=== PATIENT | female | born 1940 | race Caucasian/White ===

== ENCOUNTER 2018-04-24 08:43 | Observation (INO) | payer OTHER ==
--- NOTE | 2018-04-24 10:30 | EKG ---
Test Date: 2018-04-24 Test Time: 08:50:35 Aquatics Coordinator: ABENA MEASUREMENT RESULTS: Intervals: Rate: 108 NJ: QRSD: 140 QT: 368 QTc: 493 [place]: P: NJ: QRS: 255 T: 38 INTERPRETIVE STATEMENTS: Atrial fibrillation with rapid ventricular response Right bundle branch block Abnormal ECG No previous ECG available for comparison Electronically Signed On 04-24-18 10:29:11 BLOG WRITER by Michael Henley
[2018-04-24 11:08] LABS: Absolute Lymphocytes (CBC) 0.8 K/uL (0.7-4.9); Absolute Monocytes 0.5 K/uL (0.1-1.3); Absolute Neutrophil 5.7 K/uL (1.8-8.0); Basophils % 0.3 % (0-1.3); Eosinophils % 0.5 % (0-4.4); Hematocrit 20.5 % (36.0-45.0); Lymphocytes % 11.4 % (15.3-44.8); MPV 7.7 fL (7.6-11.3); Monocytes % 7.4 % (3.3-12.3); RBC Red Blood Cell Count 2.43 M/uL (3.86-4.86)
[2018-04-24 11:17] LABS: Potassium 4.8 mmol/L (3.5-5.1)
--- NOTE | 2018-04-24 11:34 | EDPHYS ---
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 08:53 Sent from jail for anemia, has had 5 blood transfusions before, denies rn bleeding, has "never found out why anemic", + CHF and COPD, + increased dyspnea and weakness over last few days. . Onset: The symptoms/episode began/occurred at an unknown time. Severity of symptoms: At their worst the symptoms were mild in the emergency department the symptoms are unchanged. The patient has experienced similar episodes in the past. The patient has not recently seen a physician. Historical: - Allergies: 08:57 Amiodarone; ph 08:57 Fentanyl; ph 08:57 lorazepam; ph 08:57 Metoclopramide; ph 08:57 Morphine; ph 08:57 Promethazine; ph 08:57 Levaquin; ph 08:57 Toradol; ph 08:57 Xkhfpnh-Ohu-Mpz Reductase Inhibitors; ph - Home Meds: 13:42 apixaban oral 2.5 mg oral 1 tab [Active]; Arginaid 4.5 gram-156 mg/9.2 gram oral pwpk sg [Active]; Cardizem 240 mg oral tab 1 tab daily [Active]; cholecalciferol (vitamin D3) oral oral [Active]; docusate sodium 100 mg Oral cap 1 cap 2 times per day [Active]; Flomax 0.4 mg Oral cp24 1 cap once daily [Active]; guaifenesin 600 mg Oral Ta12 1 tab every 12 hours [Active]; Humalog Sub-Q [Active]; Imdur 30 mg Oral Tb24 1 tab once daily [Active]; ipratropium bromide (bulk) miscellaneous [Active]; Lantus Sub-Q [Active]; levalbuterol HCl inhalation inhalation [Active]; Lyrica Oral [Active]; melatonin 3 mg Oral tab daily [Active]; Nitrostat SL [Active]; Omeprazole Oral [Active]; Plavix 75 mg Oral tab 1 tab once daily [Active]; Prednisone Oral [Active]; torsemide 20 mg oral tab 1 tab once daily [Active]; tramadol 50 mg Oral tab 1 tab every 6 hours [Active]; Zoloft Oral [Active]; - PMHx: 08:57 CHF; Diabetes - IDDM; Depression; Anxiety; COPD; Atrial Fib; Cellulitis; Pacemaker; ph - Immunization history:: Adult Immunizations up to date. - Social history:: Smoking status: Patient/guardian denies using tobacco. - Family history:: not pertinent. - Ebola Screening: : No symptoms or risks identified at this time. - Hospitalizations: : No recent hospitalization is reported. ROS: 08:53 Constitutional: Negative for fever, chills, and weight loss, Eyes: Negative for injury, rn pain, redness, and discharge, Cardiovascular: Negative for chest pain, palpitations, and edema, Respiratory: Negative for shortness of breath, cough, wheezing, and pleuritic chest pain, Abdomen/GI: Negative for abdominal pain, nausea, vomiting, diarrhea, and constipation, MS/Extremity: Negative for injury and deformity, Skin: Negative for injury, rash, and discoloration, Neuro: + generalized weakness Exam: 08:53 Constitutional: This is a well developed, well nourished patient who is awake, alert, rn and in no acute distress. Head/Face: Normocephalic, atraumatic. Eyes: Plae conjunctivae Cardiovascular: Irregular, tachycardic, no murmur Respiratory: Mild tachypnea with faint exp wheezing, speaking full sentences Abdomen/GI: soft, non-tender MS/ Extremity: Pulses equal, no cyanosis. Neurovascular intact. Full, normal range of motion. Equal circumference. Neuro: Awake and alert, GCS 15, oriented to person, place, time, and situation. Cranial nerves II-XII grossly intact. Motor strength 5/5 in all extremities. Sensory grossly intact. Vital Signs: 08:48 BP 153 / 66; Pulse 107; Resp 22; Temp 97.9; Pulse Ox 100% 2 lpm ; Pain 0/10; ph 10:17 BP 94 / 61; Pulse 112; Resp 20; Pulse Ox 100% on 2 lpm NC; sg 12:20 BP 118 / 77; Pulse 99; Resp 17; Pulse Ox 100% on 2 lpm NC; sg 13:00 BP 94 / 57; Pulse 111; Resp 18; Temp 97.9; Pulse Ox 100% on 2 lpm NC; Pain 0/10; sg 08:48 pt on O2 \\T\\ 2L cont ph MDM: 08:45 Patient medically screened. rn 11:31 Differential Diagnosis anemia, afib. Data reviewed: vital signs, nurses notes, lab test rn result(s), EKG, and as a result, I will admit patient. Counseling: I had a detailed discussion with the patient and/or guardian regarding: the historical points, exam findings, and any diagnostic results supporting the discharge/admit diagnosis, lab results, radiology results, the need for further work-up and treatment in the hospital. Admission orders: after a detailed discussion of the patient's condition and case, the admit orders are written by me. ED course: Patient wants to stay here for blood transfusion, does not have any special blood requirements, no active bleeding, will transfuse 2 units with lasix in between given CHF. . 04/24 08:50 Order name: CBC with Diff rn 04/24 08:50 Order name: Basic Metabolic Panel rn 04/24 08:50 Order name: PT-INR; Complete Time: 13:26 rn 04/24 08:50 Order name: Ptt, Activated; Complete Time: 13:26 rn 04/24 08:50 Order name: Type And Screen rn 04/24 11:38 Order name: Bb Add On bd 04/24 08:50 Order name: IV Start; Complete Time: 09:04 rn 04/24 08:50 Order name: EKG; Complete Time: 08:50 rn 04/24 08:50 Order name: EKG - Nurse/Tech; Complete Time: 09:04 rn 04/24 11:34 Order name: Labs - recollect needed; Complete Time: 13:16 bd 04/24 12:07 Order name: Packed RBC Leukored -1 EDMS 04/24 12:29 Order name: ABO/RH no charge EDMS 04/24 13:42 Order name: Manual Differential EDMS Administered Medications: No medications were administered Disposition: 04/24/18 11:34 Hospitalization ordered by Lukasz Stevens for Observation. Preliminary diagnosis are Anemia, Atrial fibrillation. - Bed requested for Telemetry/MedSurg (observation). - Status is Observation. bd - Condition is Stable. - Problem is new. - Symptoms have improved. UTI on Admission? No Signatures: Dispatcher [employer] EDMS Sonal Guerrero, DEHYDRATOR OPERATOR-C DEHYDRATOR OPERATOR-Ckb RobKellie Traci Tatum RN RN dw Gay, Steven, RN RN Jeffrey Cotton MD MD rn Hall, KRISTA Avila RN ph Corrections: (The following items were deleted from the chart) 13:11 11:34 Hospitalization Ordered by Lukasz Stevens DO for Observation. Preliminary dw diagnosis is Anemia; Atrial fibrillation. Bed requested for Telemetry/MedSurg (observation). Status is Observation. Condition is Stable. Problem is new. Symptoms have improved. UTI on Admission? No. rn 13:44 13:11 04/24/2018 11:34 Hospitalization Ordered by Lukasz Stevens DO for Observation. Preliminary diagnosis is Anemia; Atrial fibrillation. Bed requested for Telemetry/MedSurg (observation). Status is Observation. Condition is Stable. Problem is new. Symptoms have improved. UTI on Admission? No. dw
--- NOTE | 2018-04-24 11:34 | ER ---
Nurse's Notes [facility] Name: Rani Blanco Age: 77 yrs Sex: Female : 1940 Arrival Date: 04/24/2018 Time: 08:45 Bed 8 Private MD: Diagnosis: Anemia;Atrial fibrillation Presentation: 04/24 08:46 Presenting complaint: EMS states: Pt from [place], had labs drawn this morning and Hgb ph is 6.7, pt denies bleeding in vomitus, urine, or stool, reports hx of low Hgb, states, " I've had 5 transfusions." Hx of CHF and COPD, reports being more SOB and fatigued than normal, denies pain, N/V. Transition of care: patient was not received from another setting of care. Onset of symptoms was April 24, 2018. Risk Assessment: Do you want to hurt yourself or someone else? Patient reports no desire to harm self or others. Initial Sepsis Screen: Does the patient meet any 2 criteria? No. Patient's initial sepsis screen is negative. Does the patient have a suspected source of infection? No. Patient's initial sepsis screen is negative. Care prior to arrival: None. 08:46 Method Of Arrival: EMS: [facility] ph 08:46 Acuity: YOSSI 3 ph Historical: - Allergies: 08:57 Amiodarone; ph 08:57 Fentanyl; ph 08:57 lorazepam; ph 08:57 Metoclopramide; ph 08:57 Morphine; ph 08:57 Promethazine; ph 08:57 Levaquin; ph 08:57 Toradol; ph 08:57 Znzhgoa-Klv-Ixs Reductase Inhibitors; ph - Home Meds: 13:42 apixaban oral 2.5 mg oral 1 tab [Active]; Arginaid 4.5 gram-156 mg/9.2 gram oral pwpk sg [Active]; Cardizem 240 mg oral tab 1 tab daily [Active]; cholecalciferol (vitamin D3) oral oral [Active]; docusate sodium 100 mg Oral cap 1 cap 2 times per day [Active]; Flomax 0.4 mg Oral cp24 1 cap once daily [Active]; guaifenesin 600 mg Oral Ta12 1 tab every 12 hours [Active]; Humalog Sub-Q [Active]; Imdur 30 mg Oral Tb24 1 tab once daily [Active]; ipratropium bromide (bulk) miscellaneous [Active]; Lantus Sub-Q [Active]; levalbuterol HCl inhalation inhalation [Active]; Lyrica Oral [Active]; melatonin 3 mg Oral tab daily [Active]; Nitrostat SL [Active]; Omeprazole Oral [Active]; Plavix 75 mg Oral tab 1 tab once daily [Active]; Prednisone Oral [Active]; torsemide 20 mg oral tab 1 tab once daily [Active]; tramadol 50 mg Oral tab 1 tab every 6 hours [Active]; Zoloft Oral [Active]; - PMHx: 08:57 CHF; Diabetes - IDDM; Depression; Anxiety; COPD; Atrial Fib; Cellulitis; Pacemaker; ph - Immunization history:: Adult Immunizations up to date. - Social history:: Smoking status: Patient/guardian denies using tobacco. - Family history:: not pertinent. - Ebola Screening: : No symptoms or risks identified at this time. - Hospitalizations: : No recent hospitalization is reported. Screenin:58 Abuse screen: Denies threats or abuse. Denies injuries from another. Nutritional ph screening: No deficits noted. Tuberculosis screening: No symptoms or risk factors identified. Fall Risk None identified. Assessment: 09:00 General: Appears in no apparent distress. comfortable, Behavior is calm, cooperative, ph appropriate for age, Reports fatigue for Denies fever, feeling ill. Pain: Denies pain. Neuro: Level of Consciousness is awake, alert, obeys commands, Oriented to person, place, time, situation, Reports. Cardiovascular: Capillary refill < 3 seconds in bilateral fingers Patient's skin is warm and dry. Respiratory: Reports shortness of breath at rest Airway is patent Respiratory effort is even, unlabored, Respiratory pattern is regular. GI: Abdomen is round non-distended. : No signs and/or symptoms were reported regarding the genitourinary system. Derm: Skin is intact, is healthy with good turgor, Skin is pale. Musculoskeletal: Circulation, motion, and sensation intact. Range of motion: intact in all extremities, POst-op shoe to R foot. 09:15 Reassessment: Patient appears in no apparent distress at this time. Patient and/or sg family updated on plan of care and expected duration. Pain level reassessed. [facility] a copy of ID for the pt due to pt name and bday being incorrect per pt, awaiting a fax at this time. 10:07 Reassessment: Called [facility], informed there is no photo ID on file, pt daughter sg reports that a lapidary apprentice is on the way with an ID for the pt. pt daughter states " so what are we doing. I want her transferred to [facility] in the [facility] with her being in a-fib like she is." pt daughter instructed that the lab work needs to be sent after the ID is corrected, so that the receiving facility can have diagnostic results, pt and pt daughter stated understanding. pt turned from left side lying position to right side lying position. 11:10 Reassessment: Patient appears in no apparent distress at this time. Patient and/or sg family updated on plan of care and expected duration. Pain level reassessed. Patient is alert, oriented x 3, equal unlabored respirations, skin warm/dry/pink. 12:00 Reassessment: Patient appears in no apparent distress at this time. Patient and/or sg family updated on plan of care and expected duration. Pain level reassessed. Patient is alert, oriented x 3, equal unlabored respirations, skin warm/dry/pink. awaiting a bed assignment at this time. 13:17 Reassessment: Patient appears in no apparent distress at this time. Patient and/or sg family updated on plan of care and expected duration. Pain level reassessed. Patient is alert, oriented x 3, equal unlabored respirations, skin warm/dry/pink. pt and pt family updated on POC and the bed assignment of room 403, pt stated understanding, pt family remains at bedside at this time. Vital Signs: 08:48 BP 153 / 66; Pulse 107; Resp 22; Temp 97.9; Pulse Ox 100% 2 lpm ; Pain 0/10; ph 10:17 BP 94 / 61; Pulse 112; Resp 20; Pulse Ox 100% on 2 lpm NC; sg 12:20 BP 118 / 77; Pulse 99; Resp 17; Pulse Ox 100% on 2 lpm NC; sg 13:00 BP 94 / 57; Pulse 111; Resp 18; Temp 97.9; Pulse Ox 100% on 2 lpm NC; Pain 0/10; sg 08:48 pt on O2 \\T\\ 2L cont ph ED Course: 08:45 Patient arrived in ED. rn 08:45 Jeffrey Cotton MD is Attending Physician. rn 08:46 Margarita Walker, RN is Primary Nurse. ph 08:48 Triage completed. ph 08:55 EKG done, by pharmacy intake technician. reviewed by Jeffrey Cotton MD. at1 08:58 Arm band placed on. ph 08:58 Patient has correct armband on for positive identification. Bed in low position. Call ph light in reach. Side rails up X 1. monitoring analyst on. Pulse ox on. NIBP on. Door closed. Warm blanket given. 09:05 Inserted saline lock: 20 gauge in right forearm, using aseptic technique. Blood ph collected. 11:33 Lukasz Stevens DO is Hospitalizing Provider. rn 12:00 No provider procedures requiring assistance completed. sg 13:16 Patient admitted, IV remains in place. intact, No redness/swelling at site. sg Administered Medications: No medications were administered Outcome: 11:34 Decision to Hospitalize by Provider. rn 13:44 Patient left the ED. bd 13:44 Admitted to Tele accompanied by tech, family with patient, with oxygen, with chart. ph 13:44 Condition: stable 13:44 Instructed on the need for admit. Signatures: Kellie Rivas Steven, RN RN sg Jeffrey Cotton MD MD rn Catarina Ghosh, ui application developer EKG Tat1 Margarita Walker, RN RN ph
[2018-04-24 11:40] LABS: Protime INR 1.52
[2018-04-24 13:41] LABS: Blood Morphology Comment NOTED (NOT SEEN); Platelet Estimate ADEQ; Polychromasia 1+; Stomatocytes 1+
[2018-04-24] MEDS ORDERED: ONDANSETRON 4 MG/2 ML VIAL IV PRN (14:14)
[2018-04-24 14:57] VITALS: BMI 30.2
[2018-04-24 15:18] LABS: Urine Appearance CLEAR; Urine Bilirubin NEGATIVE (NEG); Urine Blood NEGATIVE (NEG); Urine Color YELLOW; Urine Glucose NEGATIVE (NEG); Urine Protein NEGATIVE (NEG); Urine Urobilinogen 0.2 mg/dL (0.2-1.0)
[2018-04-24 15:22] LABS: Urine Microscopic Reflex ORDER UMIC
--- NOTE | 2018-04-24 16:05 | P.HP ---
Certification for Inpatient Patient admitted to: Observation With expected LOS: <2 Midnights Patient will require the following post-hospital care: None Practitioner: I am a practitioner with admitting privileges, knowledge of patient current condition, hospital course, and medical plan of care. Services: Services provided to patient in accordance with Admission requirements found in Title 42 Section 412.3 of the Code of Federal Regulations Patient History Date of Service: 04/24/18 Primary Care Provider: Dr. Fournier; Speciality care at [facility] Reason for admission: Abnormal lab, weakness History of Present Illness: 77-year-old female presented to the hospital after having noted abnormal lab and fatigue. Patient with multiple medical problems including atrial fibrillation, CHF, COPD , hypertension, diabetes. Patient currently in skilled therapy. Patient found to have hemoglobin of 6.6. Patient on chronic anti coagulation therapy. Patient with significant past history of anemia. Workup includes EGD, colonoscopy, pill capsule, and GI evaluation which has been unremarkable. Patient has received transfusions in the past. Patient recently seen by Cardiology in [place] for ablation therapy. She is currently at skilled placement. Patient was sent to the hospital to receive a transfusion. Patient with mild fatigue. No significant chest pain, shortness of breath or dizziness noted. In the ER patient evaluated. Patient found he may hemoglobin of 6.6. Sodium 137, potassium 4.8, BUN of 45, creatinine 1.6 with a GFR of 30. Due to her multiple complicated medical problem the patient was admitted for transfusion. When I saw the patient ER, she appeared comfortable. Patient with family at bedside. Patient has multiple specialists at [facility] including cardiology , pulmonology, Endocrinology, Podiatry, nephrology. Case discussed with cardiology. Will transfusion. Monitor overnight. Allergies amiodarone Allergy (Intermediate, Verified 04/24/18 15:35) Anaphylaxis fentanyl Allergy (Verified 04/24/18 15:35) Anaphylaxis levofloxacin [From Levaquin] Allergy (Verified 04/24/18 15:35) Anaphylaxis metoclopramide [From Reglan] Allergy (Verified 11/16/15 13:37) Itching/Hives/Rash morphine Allergy (Verified 04/24/18 15:37) Anaphylaxis Jyzlkpf-Wjh-Qjn Reductase Inhibitor Adverse Reaction (Verified 04/24/18 15:37) Anaphylaxis Home medications list reviewed: Yes Home Medications: Apixaban [Eliquis *] 2.5 mg PO BID 04/24/18 Clopidogrel Bisulfate [Plavix*] 75 mg PO DAILY 04/24/18 Dronedarone [Multaq*] 400 mg PO BID 04/24/18 Insulin Glargine Human [Lantus*] 5 units SQ BEDTIME 04/24/18 Insulin Glargine Human [Lantus*] 50 unit SQ [id number] 04/24/18 Insulin Lispro [Humalog*] 15 units SQ TID 04/24/18 Pantoprazole [Protonix Tab*] 1 tab PO DAILY 04/24/18 Pregabalin [Lyrica*] 50 mg PO BID 04/24/18 Ranolazine [Ranexa] 1 tab PO BID 04/24/18 Sertraline [Zoloft*] 100 mg PO DAILY 04/24/18 Tamsulosin [Flomax*] 1 cap PO DAILY 04/24/18 - Past Medical/Surgical History Has patient received pneumonia vaccine in the past: Yes Diabetic: Yes -: Diabetes mellitus type 2, insulin dependent -: Atrial fibrillation, chronic anti coagulation therapy -: Chronic renal disease -: Diabetic neuropathy -: Glaucoma -: Cataract -: COPD -: Chronic anemia -: cardiac stents -: rotator cuff repair -: CABG 2x -: appendectomy -: hysterectomy -: cholecstectomy -: bowel resection -: skin graft on right foot Psychosocial/ Personal History: Patient is a . She has 5 children. She is currently at skilled facility - Family History Mother History Unknown: Yes -: Stroke Father History Unknown: Yes -: Heart disease Notes: heart attack - Social History Smoking Status: Former smoker Alcohol use: No CD- Drugs: No Caffeine use: No Place of Residence: [place] Review of Systems General: Weakness Eyes: Unremarkable ENT: Unremarkable Respiratory: Unremarkable Cardiovascular: Unremarkable Gastrointestinal: Unremarkable Genitourinary: Unremarkable Musculoskeletal: Unremarkable Integumentary: Unremarkable Neurological: Unremarkable Lymphatics: Unremarkable Physical Examination - Vital Signs Temperature: 98.0 F Blood Pressure: 117/63 Pulse: 107 Respirations: 18 Pulse Ox (%): 100 - Physical Exam General: Alert, In no apparent distress, Oriented x3, Cooperative HEENT: Atraumatic, PERRLA, Mucous membr. moist/pink Neck: Supple Respiratory: Clear to auscultation bilaterally, Normal air movement Cardiovascular: Irregular heart rate/rhythm (Atrial fibrillation) Gastrointestinal: Normal bowel sounds, Soft and benign, Non-distended, No rebound, No guarding Musculoskeletal: No erythema, No tenderness, No warmth Integumentary: No erythema, No warmth, No cyanosis Neurological: Normal speech, Normal strength at 5/5 x4 extr, Normal tone, Normal affect - Studies Laboratory Data (last 24 hrs) 04/24/18 10:30: PT 17.6 H, INR 1.52, APTT 28.5 04/24/18 10:30: Sodium 137, Potassium 4.8, BUN 45 H, Creatinine 1.64 H, Glucose 104 04/24/18 10:30: WBC 7.1, Hgb 6.6 L*, Hct 20.5 L*, Plt Count 222 Assessment and Plan - Plan Impression: Fatigue secondary to acute on chronic anemia likely iron deficient Atrial fibrillation on chronic anti coagulation therapy with recent history of cardiac ablation Diabetes mellitus type 2, insulin-dependent Hypertension Diabetic neuropathy COPD Diastolic CHF, chronic Plan: Patient will be admitted for transfusion. Will try to maintain hemoglobin above 8.5. Case discussed at length with cardiac team in [place]. Agree with current plan. Will recommend Hematology evaluation as an outpatient as the patient will likely require bone marrow biopsy and hematology consultation. This was addressed in detail by Cardiology. Will continue with current home medications including anti coalition therapy. Will monitor closely. Will reassess tomorrow and plan for discharge. Continue home medication for diabetes , hypertension, diabetic neuropathy and COPD. Discharge Plan: Home Plan to discharge in: 24 Hours - Advance Directives Does patient have a Living Will: No Does patient have a Durable POA for Healthcare: No - Code Status/Comfort Care Code Status Assessed: Yes (Patient full code.) Time Spent Managing Pts Care (In Minutes): 55
[2018-04-24 16:54] LABS: Urine Bacteria >50 /HPF (<20); Urine Culture Reflex Order REFLEXED; Urine RBC <5 /HPF (NONE SEEN)
[2018-04-24] MEDS ORDERED: GLUCAGON 1 MG/VIAL IM PRN ×2 (17:17→17:18)
[2018-04-24] MEDS ORDERED: D50W 25 GM/50 ML SYRINGE IV PRN ×2 (17:17→17:18)
[2018-04-24] MEDS: INSULIN -REGULAR HUMAN 50 UNIT/0.5 ML ML SQ SCH ×2 (17:30→21:00)
[2018-04-24] MEDS ORDERED: NA CHLORIDE 0.9% 250 ML ONE (17:36)
[2018-04-24] MEDS: DRONEDARONE 400 MG TAB PO SCH (18:00)
[2018-04-24] MEDS: ACETAMINOPHEN 500 MG TAB PO PRN (18:18)
[2018-04-24 19:28] LABS: Ferritin 244.3 ng/mL (8-388); Thyroid Stimulating Hormone 1.55 uIU/mL (0.360-3.740)
[2018-04-24] MEDS: ARFORMOTEROL TARTRATE 15 MCG/2 ML VIAL.NEB NEB SCH (20:50)
[2018-04-24] MEDS ORDERED: INSULIN GLARGINE 100 UNITS/ML SQ SCH ×2 (21:00)
[2018-04-24] MEDS ORDERED: RANOLAZINE PO SCH (21:00)
[2018-04-24] MEDS ORDERED: FUROSEMIDE 20 MG/ 2ML VIAL IV ONE (21:00)
[2018-04-24] MEDS: PREGABALIN 50 MG CAP PO SCH (21:33)
[2018-04-24] MEDS: APIXABAN 2.5 MG TABLET PO SCH (21:37)
[2018-04-24] MEDS ORDERED: MELATONIN 5 MG TABLET PO ONE (21:56)
[2018-04-25] MEDS ORDERED: NA CHLORIDE 0.9% 250 ML ONE (00:20)
[2018-04-25] MEDS: IPRATROPIUM BROM 0.5MG/2.5ML NEB PRN ×2 (01:50→07:55)
[2018-04-25] MEDS ORDERED: FUROSEMIDE 20 MG/ 2ML VIAL IV ONE (03:48)
[2018-04-25 05:21] LABS: Absolute Lymphocytes (CBC) 1.2 K/uL (0.7-4.9); Absolute Monocytes 0.7 K/uL (0.1-1.3); Absolute Neutrophil 4.1 K/uL (1.8-8.0); Basophils % 0.4 % (0-1.3); Hematocrit 27.5 % (36.0-45.0); Lymphocytes % 19.1 % (15.3-44.8); MPV 7.6 fL (7.6-11.3); Monocytes % 10.8 % (3.3-12.3); RBC Red Blood Cell Count 3.28 M/uL (3.86-4.86)
[2018-04-25 05:31] LABS: Magnesium 1.8 mg/dL (1.8-2.4); Potassium 4.5 mmol/L (3.5-5.1)
[2018-04-25] MEDS ORDERED: MAGNESIUM SULFATE 1 gm IVPB 1 GM/100 ML BAG IV ONE (06:09)
[2018-04-25] MEDS ORDERED: PANTOPRAZOLE 40MG TABLET PO SCH (07:30)
[2018-04-25] MEDS: INSULIN -REGULAR HUMAN 50 UNIT/0.5 ML ML SQ SCH ×2 (07:30→12:11)
[2018-04-25] MEDS: ARFORMOTEROL TARTRATE 15 MCG/2 ML VIAL.NEB NEB SCH (07:55)
[2018-04-25] MEDS: APIXABAN 2.5 MG TABLET PO SCH (08:19)
[2018-04-25] MEDS: PREGABALIN 50 MG CAP PO SCH (08:19)
[2018-04-25] MEDS: DRONEDARONE 400 MG TAB PO SCH (08:19)
--- NOTE | 2018-04-25 08:35 | RAD REPORT ---
EXAM DESCRIPTION: RAD - Chest Single View - 04/25/2018 7:10 am CLINICAL HISTORY: follow up CHF Chest pain. COMPARISON: No comparisons FINDINGS: Portable technique limits examination quality. Mild interstitial pulmonary edema is seen. The heart is prominent in size with changes of a prior CAB G noted. Multi lead pacer device is place. Right humeral prosthesis is present. IMPRESSION: Mild CHF.
[2018-04-25] MEDS ORDERED: SERTRALINE HCL 100 MG TAB PO SCH (09:00)
[2018-04-25] MEDS ORDERED: CLOPIDOGREL 75 MG TABLET PO SCH (09:00)
[2018-04-25] MEDS ORDERED: TAMSULOSIN 0.4 MG SR CAP PO SCH (09:00)
--- NOTE | 2018-04-25 09:57 | P.DS ---
Admission Date: 04/24/18 Discharge Date: 04/25/18 Primary Care Provider: Dr. Fournier; Speciality care at [facility] Reason for Admission: Abnormal lab, weakness Consultations: none Procedures: Medical Problem List: Fatigue secondary to acute on chronic anemia likely iron deficient Atrial fibrillation on chronic anti coagulation therapy with recent history of cardiac ablation Diabetes mellitus type 2, insulin-dependent Hypertension Diabetic neuropathy COPD, oxygen-dependent Diastolic CHF, chronic, oxygen dependent Depression GERD Chronic renal disease, stage 3/4 Obesity, BMI 30.2 Brief History of Present Illness: 77-year-old female presented to the hospital after having noted abnormal lab and fatigue. Patient with multiple medical problems including atrial fibrillation, CHF, COPD , hypertension, diabetes. Patient currently in skilled therapy. Patient found to have hemoglobin of 6.6. Patient on chronic anti coagulation therapy. Patient with significant past history of anemia. Workup includes EGD, colonoscopy, pill capsule, and GI evaluation which has been unremarkable. Patient has received transfusions in the past. Patient recently seen by Cardiology in [place] for ablation therapy. She is currently at skilled placement. Patient was sent to the hospital to receive a transfusion. Patient with mild fatigue. No significant chest pain, shortness of breath or dizziness noted. In the ER patient evaluated. Patient found he may hemoglobin of 6.6. Sodium 137, potassium 4.8, BUN of 45, creatinine 1.6 with a GFR of 30. Due to her multiple complicated medical problem the patient was admitted for transfusion. When I saw the patient ER, she appeared comfortable. Patient with family at bedside. Patient has multiple specialists at [facility] including cardiology , pulmonology, Endocrinology, Podiatry, nephrology. Case discussed with cardiology. Will transfusion. Monitor overnight. Hospital Course: Patient presented with acute on chronic anemia. Patient recently evaluated and found to have a low hemoglobin. Patient with prior need for transfusions. Patient was admitted for transfusion. Patient has had previous GI workup including EGD, colonoscopy, pill capsule which have been unremarkable. Hemoglobin 6.6 upon admission. Patient received 2 units of blood. At discharge hemoglobin 9.3. She is without any significant abnormalities. Patient will return to [facility] facility to continue [facility]. She was recently hospitalized after cardiac ablation in [place]. Recommend to recheck lab-CBC in 2-4 weeks to monitor progress. Recommend to check iron and B12 levels as an outpatient. Will also recommend that she see Hematology as an outpatient to further evaluate her anemia. Patient may require bone marrow biopsy to rule out MDS. At discharge she will continue with multi vitamin with iron daily. Recommendations addressed with her trailer mechanic team who agrees with current plan of care. Since she has all of her specialists and doctors up in [place], will recommend hematology workup in [place]. Patient with atrial fibrillation on chronic anti coagulation therapy with recent history of cardiac ablation, CAD, hypertension, chronic diastolic CHF- oxygen dependent. Patient is seen by cardiology in [place]. Patient had recent cardiac ablation and now at [facility] facility. At discharge she will continue with her current medications including Multaq 400 mg 1 pill twice daily , Ranexa 1000 mg 1 pill twice daily, Eliquis 2.5 mg 1 pill twice daily, Plavix 75 mg daily, diltiazem 240 mg daily, isosorbide mononitrate 30 mg 1 pill daily, and Demadex 20 mg 1 pill twice daily. Recommend to continue a 1500 cc per day fluid restriction and low-salt diet. She is to monitor her weight daily. If her weight increases by more than 5 lb she is to contact her trailer mechanic for further recommendation. Further adjustment may be required. Patient with diabetes mellitus type 2, insulin dependent. She will continue with Lantus 50 units subcu every a.m. and 5 units subcu every p.m.. Patient also takes Humalog 15 units subcu 3 times a day. Recommend to maintain blood sugars less 140 fasting and less than 200 after meals. Further adjustment can be done by her PCP. Patient has endocrinology in [place]. Recommend to follow up with Endocrinology as directed. Patient with COPD, oxygen-dependent. Patient will continue with Brovana 1 unit dose twice daily and Xopenex 1 unit dose 3 times a day as needed for shortness of breath. Patient will continue with oxygen to maintain sats above 90%. Patient is seen by pulmonology in [place]. Recommend to follow up with pulmonology as directed. Patient with depression. At discharge she will continue with her medication Zoloft 100 mg daily. Patient with chronic renal disease, stage 3/4. This remained stable. Patient sees Nephrology in [place]. Recommend to follow up with nephrology as directed. Recommend to recheck lab-BMP in 2-4 weeks. Patient with GERD. Patient will continue with Protonix 40 mg 1 pill once daily. Vital Signs/Physical Exam: Temp Pulse Resp BP Pulse Ox 96.9 F 58 18 139/62 100 04/25/18 08:00 04/25/18 08:00 04/25/18 08:00 04/25/18 08:00 04/25/18 08:00 General: Alert, In no apparent distress, Oriented x3, Cooperative HEENT: Atraumatic Neck: Supple Respiratory: Clear to auscultation bilaterally, Normal air movement Cardiovascular: Irregular heart rate/rhythm (Atrial fibrillation, rate controlled) Gastrointestinal: Normal bowel sounds, Soft and benign, Non-distended, No tenderness, No masses, No rebound, No guarding Musculoskeletal: No erythema, No tenderness, No warmth Integumentary: No tenderness/swelling, No erythema, No warmth, No cyanosis Neurological: Normal speech, Normal strength at 5/5 x4 extr, Normal tone, Normal affect Other Physical/Emotional Findings: Patient with chronic O2 Laboratory Data at Discharge: WBC 6.0 K/uL (4.3-10.9) D 04/25/18 04:56 Hgb 9.3 g/dL (12.0-15.0) L D 04/25/18 04:56 Hct 27.5 % (36.0-45.0) L D 04/25/18 04:56 Plt Count 233 K/uL (152-406) 04/25/18 04:56 PT 17.6 SECONDS (9.5-12.5) H 04/24/18 10:30 INR 1.52 04/24/18 10:30 APTT 28.5 SECONDS (24.3-36.9) 04/24/18 10:30 Sodium 141 mmol/L (136-145) 04/25/18 04:56 Potassium 4.5 mmol/L (3.5-5.1) 04/25/18 04:56 BUN 45 mg/dL (7-18) H 04/25/18 04:56 Creatinine 1.70 mg/dL (0.55-1.3) H 04/25/18 04:56 Glucose 151 mg/dL (74-106) H 04/25/18 04:56 Magnesium 1.8 mg/dL (1.8-2.4) 04/25/18 04:56 Home Medications: Apixaban [Eliquis *] 2.5 mg PO BID 04/24/18 Clopidogrel Bisulfate [Plavix*] 75 mg PO DAILY 04/24/18 Diltiazem HCl [Cardizem LA] 240 mg PO DAILY 04/24/18 Dronedarone [Multaq*] 400 mg PO BID 04/24/18 Insulin Glargine Human [Lantus*] 5 units SQ BEDTIME 04/24/18 Insulin Glargine Human [Lantus*] 50 unit SQ [id number] 04/24/18 Insulin Lispro [Humalog*] 15 units SQ TID 04/24/18 Isosorbide Mononitrate [Isosorbide Mononitrate ER] 30 mg PO DAILY 04/24/18 Pantoprazole [Protonix Tab*] 1 tab PO DAILY 04/24/18 Pregabalin [Lyrica*] 50 mg PO BID 04/24/18 Ranolazine [Ranexa] 1 tab PO BID 04/24/18 Sertraline [Zoloft*] 100 mg PO DAILY 04/24/18 Tamsulosin [Flomax*] 1 cap PO DAILY 04/24/18 Torsemide [Demadex*] 20 mg PO BID 04/24/18 Arformoterol Tartrate [Brovana] 15 mcg NEB BIDRESP #60 vial.neb 04/25/18 Levalbuterol HCl [Xopenex] 0.63 mg IH TID PRN #90 vial.neb 04/25/18 New Medications: Arformoterol Tartrate [Brovana] 15 mcg NEB BIDRESP #60 vial.neb Levalbuterol HCl [Xopenex] 0.63 mg IH TID PRN #90 vial.neb PRN Reason: Shortness Of Breath Patient Discharge Instructions: 1. Patient will return to skilled facility to continue rehab. 2. Patient presented with acute on chronic anemia. Patient recently evaluated and found to have a low hemoglobin. Patient with prior need for transfusions. Patient was admitted for transfusion. Patient has had previous GI workup including EGD, colonoscopy, pill capsule which have been unremarkable. Hemoglobin 6.6 upon admission. Patient received 2 units of blood. At discharge hemoglobin 9.3. She is without any significant abnormalities. Patient will return to [facility] facility to continue rehabilitation. She was recently hospitalized after cardiac ablation in [place]. Recommend to recheck lab-CBC in 2-4 weeks to monitor progress. Recommend to check iron and B12 levels as an outpatient. Will also recommend that she see Hematology as an outpatient to further evaluate her anemia. Patient may require bone marrow biopsy to rule out MDS. At discharge she will continue with multi vitamin with iron daily. Recommendations addressed with her trailer mechanic team who agrees with current plan of care. Since she has all of her specialists and doctors up in [place], will recommend hematology workup in [place]. 3. Patient with atrial fibrillation on chronic anti coagulation therapy with recent history of cardiac ablation, CAD, hypertension, chronic diastolic CHF-oxygen dependent. Patient is seen by cardiology in [place]. Patient had recent cardiac ablation and now at [facility] facility. At discharge she will continue with her current medications including Multaq 400 mg 1 pill twice daily, Ranexa 1000 mg 1 pill twice daily, Eliquis 2.5 mg 1 pill twice daily, Plavix 75 mg daily, diltiazem 240 mg daily, isosorbide mononitrate 30 mg 1 pill daily, and Demadex 20 mg 1 pill twice daily. Recommend to continue a 1500 cc per day fluid restriction and low-salt diet. She is to monitor her weight daily. If her weight increases by more than 5 lb she is to contact her trailer mechanic for further recommendation. Further adjustment may be required. 4. Patient with diabetes mellitus type 2, insulin dependent. She will continue with Lantus 50 units subcu every a.m. and 5 units subcu every p.m.. Patient also takes Humalog 15 units subcu 3 times a day. Recommend to maintain blood sugars less 140 fasting and less than 200 after meals. Further adjustment can be done by her PCP. Patient has endocrinology in [place]. Recommend to follow up with Endocrinology as directed. 5. Patient with COPD, oxygen-dependent. Patient will continue with Brovana 1 unit dose twice daily and Xopenex 1 unit dose 3 times a day as needed for shortness of breath. Patient will continue with oxygen to maintain sats above 90%. Patient is seen by pulmonology in [place]. Recommend to follow up with pulmonology as directed. 6. Patient with depression. At discharge she will continue with her medication Zoloft 100 mg daily. 7. Patient with chronic renal disease, stage 3/4. This remained stable. Patient sees Nephrology in [place]. Recommend to follow up with nephrology as directed. Recommend to recheck lab- BMP in 2-4 weeks. 8. Patient with GERD. Patient will continue with Protonix 40 mg 1 pill once daily. Diet: ADA Activity: Fall precautions Time spent managing pt's care (in minutes): 55
[2018-04-25] MEDS: ACETAMINOPHEN 500 MG TAB PO PRN (10:04)
[2018-04-25 12:03] VITALS: BP 126/63; TEMP 97
[2018-04-25 13:19] VITALS: O2SAT 99
[2018-04-25] MEDS ORDERED: TORSEMIDE 20 MG TAB PO SCH (21:00)
[2018-04-26] MEDS ORDERED: ISOSORBIDE MONO SR 30 MG TAB PO SCH (09:00)
[2018-04-26] MEDS ORDERED: DILTIAZEM HCL 120 MG SR CAP PO SCH (09:00)
== END 2018-04-25 17:00 ==
LOC: ER 08:43 → ERHOLD 12:29 → 4TH 13:33
PROVIDERS: ADMIT Family Medicine; ATTEND Family Medicine
PROC: 30233N1 Transfusion of Nonautologous Red Blood Cells into Peripheral Vein, Percutaneous Approach (ICD-10-PCS; principal; 2018-04-24)
DX: D64.9 Anemia, unspecified (principal); I13.0 Hypertensive heart and chronic kidney disease with heart failure and stage 1 through stage 4 chronic kidney disease, or unspecified chronic kidney disease; E11.22 Type 2 diabetes mellitus with diabetic chronic kidney disease; N18.3 Chronic kidney disease, stage 3 (moderate); I50.32 Chronic diastolic (congestive) heart failure; I48.91 Unspecified atrial fibrillation; K21.9 Gastro-esophageal reflux disease without esophagitis; E11.40 Type 2 diabetes mellitus with diabetic neuropathy, unspecified; I25.10 Atherosclerotic heart disease of native coronary artery without angina pectoris; J44.9 Chronic obstructive pulmonary disease, unspecified; F32.9 Major depressive disorder, single episode, unspecified; Z99.81 Dependence on supplemental oxygen; Z79.01 Long term (current) use of anticoagulants; Z95.1 Presence of aortocoronary bypass graft
CPT/HCPCS: 93005; 87088; 85025 ×2; 87086; 80048 ×2; 36415; 86900; 83735; 86850; 85610; 86901; 82962 ×5; 85730; 84443; 87077; 87186; 84439; 82728; 82607; 83540; 84466; 71045; 99285; 36430; J1940 ×2; J3475; J7605 ×2; P9016 ×2; 81003; 81015

== ENCOUNTER 2018-04-28 16:41 | Emergency (ER) | payer OTHER ==
[2018-04-28 18:50] LABS: Absolute Lymphocytes (CBC) 1.1 K/uL (0.7-4.9); Absolute Monocytes 0.8 K/uL (0.1-1.3); Absolute Neutrophil 5.6 K/uL (1.8-8.0); Basophils % 0.5 % (0-1.3); Eosinophils % 0.6 % (0-4.4); Hematocrit 21.1 % (36.0-45.0); Lymphocytes % 14.9 % (15.3-44.8); MPV 7.9 fL (7.6-11.3); Monocytes % 10.6 % (3.3-12.3); RBC Red Blood Cell Count 2.53 M/uL (3.86-4.86)
[2018-04-28] MEDS ORDERED: IPRATROPIUM BROM 0.5MG/2.5ML ONE (18:51)
[2018-04-28] MEDS ORDERED: LEVALBUTEROL 1.25 MG/3 ML NEB ONE (18:52)
[2018-04-28] MEDS ORDERED: PIPER/TAZO/NS 3.375gm 3.375 GM/100 ML BAG ONE (18:52)
[2018-04-28 19:03] LABS: Protime INR 1.61
[2018-04-28 19:18] LABS: Albumin 2.3 g/dL (3.4-5.0); Bilirubin Direct 0.1 mg/dL (0-0.2); Bilirubin Total 0.4 mg/dL (0.2-1.0); Magnesium 1.9 mg/dL (1.8-2.4); Potassium 4.6 mmol/L (3.5-5.1); Protein, Total 6.4 g/dL (6.4-8.2); Troponin (Emerg Dept Use Only) 0.02 ng/mL (0.0-0.045)
--- NOTE | 2018-04-28 19:25 | ER ---
Nurse's Notes [facility] Name: Rani Blanco Age: 77 yrs Sex: Female : 1940 Arrival Date: 04/28/2018 Time: 16:58 Bed 13 Private MD: Diagnosis: Cellulitis and acute lymphangitis of other parts of limb;Anemia, unspecified;Unspecified kidney failure;Gastrointestinal hemorrhage, unspecified;Type 2 diabetes mellitus;Unspecified combined systolic (congestive) and diastolic (congestive) heart failure Presentation: 04/28 16:45 Presenting complaint: EMS states: Pt. is A \T\ O x 4, is from [facility]. Pt. rb1 can normally walk but this morning she was unable to walk due to pain. right foot is swollen and has a foul odor. Started feeling shaky yesterday. History of A-Fib. c/o headache. O2 sat is 100% 4 L NC. Vital signs are stable, BP 142/76, P 80. Transition of care: patient was received from another setting of care (long-term care facility), [facility]. Onset of symptoms was April 27, 2018. Risk Assessment: Do you want to hurt yourself or someone else? Patient reports no desire to harm self or others. Care prior to arrival: None. 16:45 Method Of Arrival: EMS: [facility] 16:45 Acuity: YOSSI 3 rb1 16:45 Initial Sepsis Screen: Does the patient meet any 2 criteria? No. Patient's initial rb1 sepsis screen is negative. Does the patient have a suspected source of infection? No. Patient's initial sepsis screen is negative. Triage Assessment: 16:45 General: Appears in no apparent distress. comfortable, Behavior is calm, cooperative. rb1 General: Denies fever, feeling ill, Feels shaky. Pain: Complains of pain in right foot Pain currently is 8 out of 10 on a pain scale. Pain began 1 day ago. Neuro: Level of Consciousness is awake, alert, obeys commands, Oriented to person, place, time, situation. Cardiovascular: Capillary refill < 3 seconds is brisk in bilateral toes. Respiratory: Airway is patent Respiratory effort is even, unlabored, Respiratory pattern is regular, symmetrical. GI: No signs and/or symptoms were reported involving the gastrointestinal system. : No signs and/or symptoms were reported regarding the genitourinary system. Derm: Skin is pink, warm \T\ dry. Wound noted right foot- surgical Reports pain that is 8 out of 10 on a pain scale. Musculoskeletal: Range of motion: intact in all extremities, Reports unable to bare weight on her right foot. Historical: - Allergies: 16:45 Amiodarone; rb1 16:45 Fentanyl; rb1 16:45 Levaquin; rb1 16:45 Lorazepam; rb1 16:45 METOCLOPRAMIDE; rb1 16:45 Morphine; rb1 16:45 Promethazine; rb1 16:45 Mdbsava-Uhw-Guw Reductase Inhibitors; rb1 16:45 Toradol; rb1 - Home Meds: 16:45 apixaban 2.5 mg Oral 1 tab 2 times per day [Active]; Arginaid 4.5 gram-156 mg/9.2 gram rb1 Oral pwpk twice a day [Active]; Cardizem 240 mg Oral tab 1 tab daily [Active]; cholecalciferol (vitamin D3) 2,000 unit oral cap daily [Active]; docusate sodium 100 mg Oral cap 1 cap 2 times per day [Active]; Flomax 0.4 mg Oral cp24 1 cap once daily [Active]; guaifenesin 600 mg Oral Ta12 1 tab every 12 hours [Active]; Humalog subcutaneous [Active]; Lantus Sub-Q [Active]; Imdur 30 mg Oral Tb24 1 tab once daily [Active]; ipratropium bromide (bulk) miscellaneous [Active]; levalbuterol HCl 0.63 mg/3 mL inhalation nebu 3 mL 3 times per day [Active]; Lyrica 50 mg Oral 1 cap 2 times per day [Active]; melatonin 3 mg Oral tab 2 tabs daily [Active]; Multaq 400 mg oral tab 1 tab 2 times per day [Active]; Nitrostat SL [Active]; omeprazole 20 mg oral TbEC 20 mg daily [Active]; Plavix 75 mg Oral tab 1 tab once daily [Active]; prednisone 5 mg oral tab 1 tab once daily [Active]; torsemide 20 mg Oral tab 1 tab twice a day [Active]; tramadol 50 mg Oral tab 1 tab every 6 hours [Active]; Zoloft Oral [Active]; Ranexa 1,000 mg oral Tb12 1 tab 2 times per day [Active]; zinc sulfate 220 mg Oral tab daily [Active]; Vitamin C Oral [Active]; - PMHx: 16:45 Anxiety; Atrial Fib; Cellulitis; CHF; COPD; Depression; Diabetes - IDDM; Pacemaker; rb1 - Immunization history:: Adult Immunizations up to date. - Social history:: Smoking status: Patient/guardian denies using tobacco. - Ebola Screening: : Patient negative for fever greater than or equal to 101.5 degrees Fahrenheit, and additional compatible Ebola Virus Disease symptoms. - Family history:: not pertinent. Screenin:45 Abuse screen: Denies threats or abuse. Nutritional screening: No deficits noted. rb1 Tuberculosis screening: No symptoms or risk factors identified. Fall Risk No fall in past 12 months (0 pts). Secondary diagnosis (15 points) impaired mobility, IV access (20 points). Ambulatory Aid- Crutches/Cane/Walker (15 pts). Gait- Impaired (20 pts.). Mental Status- Oriented to own ability (0 pts). Total Mancuso Fall Scale indicates High Risk Score (45 or more points). Fall prevention measures have been instituted. Side Rails Up X 2 Placed Close to Nursing Station 1:1 Attendant Assigned Frequent Obs/Assessments Occuring Family Present and informed to notify staff if the need to leave the bedside As available patient and family educated on Fall Prevention Program and Strategies. Assessment: 16:45 General: See triage assessment. rb1 17:45 Reassessment: Patient appears in no apparent distress at this time. Patient and/or rb1 family updated on plan of care and expected duration. Pain level reassessed. Patient is alert, oriented x 3, equal unlabored respirations, skin warm/dry/pink. Daughter at bedside. 18:45 Reassessment: Patient appears in no apparent distress at this time. Pt. is drowsy but rb1 responds when spoken to. 19:58 Reassessment: Patient and/or family updated on plan of care and expected duration. Pain jb4 level reassessed. PT is drowsy but can be aroused with verbal stimuli, oriented x4, Daughter is at the bedside. Wounds noted to the right heel and the sacrum. Respirations are even and unlabored. Attempted to call report to receiving facility instructed to wait 15 minutes and call back. 21:00 Reassessment: No changes from previously documented assessment. Patient and/or family jb4 updated on plan of care and expected duration. Pain level reassessed. Family is at the bedside. 21:13 Reassessment: Report called to receiving facility, Receiving nurse is KRISTA Akers. jb4 21:23 Reassessment: Transfusion started. Cross checked with KRISTA Olmedo. jb4 21:56 Reassessment: No changes from previously documented assessment. Patient and/or family jb4 updated on plan of care and expected duration. Pain level reassessed. Transfusion on going, no signs of adverse reaction noted. Respirations even and unlabored. Rhonchi noted bilaterally, Pt denies pain other than to the sacrum and right heel. Denies SOB, dyspnea, or lower back pain. 22:10 Reassessment: No changes from previously documented assessment. Patient and/or family jb4 updated on plan of care and expected duration. Pain level reassessed. Cullen catheter inserted, 700 ml output noted. EMS at the bedside. Blood cross checked with Tino EMT-P. Vital Signs: 16:45 BP 128 / 54; Pulse 85; Resp 19; Temp 98.1(O); Pulse Ox 100% on R/A; Weight 77.11 kg rb1 (R); Height 5 ft. 3 in. (160.02 cm) (R); Pain 8/10; 19:00 BP 144 / 75; Pulse 74; Resp 22; Pulse Ox 100% on Nebulizer Mask; jb4 20:00 BP 125 / 53; Pulse 69; Resp 20; Pulse Ox 100% on 2 lpm NC; jb4 20:59 BP 111 / 57; Pulse 68; Resp 17; Pulse Ox 99% on R/A; oe 21:01 BP 132 / 49; Pulse 68; Resp 15; Temp 97.6(O); Pulse Ox 100% on R/A; tl2 21:20 BP 126 / 50; Pulse 65; Resp 15; Pulse Ox 100% on R/A; tl2 21:20 tl2 22:18 BP 120 / 50; Pulse 70; Resp 14; Temp 98.1(O); Pulse Ox 100% on 2 lpm NC; jb4 16:45 Body Mass Index 30.11 (77.11 kg, 160.02 cm) rb1 21:20 See transfusion flow sheet for further vitals. tl2 ED Course: 16:45 Arm band placed on right wrist. rb1 16:45 Patient has correct armband on for positive identification. Bed in low position. Call rb1 light in reach. Side rails up X 1. Pulse ox on. NIBP on. Pillow given. 16:58 Patient arrived in ED. rb1 17:00 Kirk Ascencio MD is Attending Physician. [facility] 17:04 Triage completed. rb1 17:47 Elizabeth Mcclendon, RN is Primary Nurse. rb1 18:21 First set of blood cultures drawn by ar. Inserted saline lock: 22 gauge in right dh3 forearm, using aseptic technique. Blood collected. 18:30 Initial lab(s) drawn, by ar, sent to lab. dh3 18:40 Second set of blood cultures drawn by ar. dh3 18:57 EKG done, by ED staff, reviewed by Kirk Ascencio MD. 3 19:00 Report given to KRISTA Mireles. rb1 19:27 XRAY Chest (1 view) In Process Unspecified. EDMS 19:27 Foot Right 2 View XRAY In Process Unspecified. EDMS 21:40 Inserted saline lock: 22 gauge in left antecubital area, using aseptic technique. jb4 22:15 Patient transferred, IV remains in place. jb4 22:15 No provider procedures requiring assistance completed. jb4 Administered Medications: 18:52 Drug: Xopenex 1.25 mg Route: Inhalation; rb1 18:52 Drug: AtroVENT Aerosol 0.5 mg Route: Inhalation; rb1 18:59 Drug: Zosyn 3.375 grams Route: IVPB; Infused Over: 60 mins; Site: right wrist; rb1 19:59 Follow up: Response: No adverse reaction; IV Status: Completed infusion jb4 20:15 Drug: ProTONIX 40 mg Route: IVP; Site: right wrist; jb4 22:43 Follow up: Response: No adverse reaction jb4 20:17 Drug: Lasix 40 mg Route: IVP; Site: right wrist; jb4 22:42 Follow up: Response: No adverse reaction jb4 21:00 Drug: Tylenol 650 mg Route: PO; tl2 22:42 Follow up: Response: No adverse reaction jb4 21:00 Drug: Benadryl 12.5 mg Route: IVP; Site: right wrist; tl2 22:35 Follow up: Response: No adverse reaction 4 Point of Care Testing: Blood Glucose: 17:32 Blood Glucose: 236 mg/dL; dh3 Ranges: Outcome: 19:24 ER care complete, transfer ordered by . coleen 22:15 Transferred by ground EMS to [facility]. jb4 22:15 Condition: stable 22:15 Discharge instructions given to patient, family, Instructed on the need for transfer, Demonstrated understanding of instructions. 22:44 Patient left the ED. jb4 Addendum: 05/05/2018 09:05 Addendum: Culture Results: Positive blood culture. Pt still admitted at [facility], a a5 spoke to pt's nurse Mercy, and faxed results to him. Signatures: Dispatcher [employer] EDMS Kirk Ascencio MD MD cha Calderon, Audri, RN RN aa5 Elizabeth Mcclendon, RN KRISTA rb1 Shara Yusuf, KRISTA VELASCO tl2 Daniel Durán, KRISTA RN jb4 Zenon Tabor Deanna 3 Corrections: (The following items were deleted from the chart) 04/28 22:01 19:58 Reassessment: Patient and/or family updated on plan of care and expected tl2 duration. Pain level reassessed. Family is at the bedside. Pt is drowsy but is able to be aroused to verbal stimuli. Pt is oriented to person, place, time, and situation. Respirations are even and unlabored. Attempted to call report to receiving facility, instructed to call back in 15 minutes. jb4 23:29 19:58 Reassessment: Patient and/or family updated on plan of care and expected jb4 duration. Pain level reassessed. Family is at the bedside. Pt is drowsy but is able to be aroused to verbal stimuli. Pt is oriented to person, place, time, and situation. Respirations are even and unlabored. Attempted to call report to receiving facility, instructed to call back in 15 minutes. wounds noted to the right heel, and sacrum. tl2 23:29 21:00 Reassessment: No changes from previously documented assessment. Patient and/or jb4 family updated on plan of care and expected duration. Pain level reassessed. Family is at the bedside. tl2 23:29 21:23 Reassessment: Blood transfusion started. tl2 jb4 23:29 21:56 Reassessment: No changes from previously documented assessment. Patient and/or jb4 family updated on plan of care and expected duration. Pain level reassessed. Transfusion ongoing, no adverse reaction noted.family at the bedside. tl2
--- NOTE | 2018-04-28 19:25 | EDPHYS ---
Physician Documentation [facility] Name: Rani Blanco Age: 77 yrs Sex: Female : 1940 Arrival Date: 04/28/2018 Time: 16:58 Bed 13 Private MD: ED Physician Kirk Ascencio HPI: 04/28 17:59 This 77 yrs old Female presents to ER via EMS with complaints of Right Foot coleen Swelling. 17:59 The patient has shortness of breath at rest, with light activity. Onset: The coleen symptoms/episode began/occurred 2 day(s) ago. Duration: The symptoms are continuous, and are steadily getting worse. The patient's shortness of breath has no apparent modifying factors. The patient or guardian reports cough, difficulty breathing. weak, sob, foot swollen, right. Associated signs and symptoms: Pertinent positives: non-productive cough. Historical: - Allergies: 16:45 Amiodarone; rb1 16:45 Fentanyl; rb1 16:45 Levaquin; rb1 16:45 Lorazepam; rb1 16:45 METOCLOPRAMIDE; rb1 16:45 Morphine; rb1 16:45 Promethazine; rb1 16:45 Ogcpqop-Ada-Mtw Reductase Inhibitors; rb1 16:45 Toradol; rb1 - Home Meds: 16:45 apixaban 2.5 mg Oral 1 tab 2 times per day [Active]; Arginaid 4.5 gram-156 mg/9.2 gram rb1 Oral pwpk twice a day [Active]; Cardizem 240 mg Oral tab 1 tab daily [Active]; cholecalciferol (vitamin D3) 2,000 unit oral cap daily [Active]; docusate sodium 100 mg Oral cap 1 cap 2 times per day [Active]; Flomax 0.4 mg Oral cp24 1 cap once daily [Active]; guaifenesin 600 mg Oral Ta12 1 tab every 12 hours [Active]; Humalog subcutaneous [Active]; Lantus Sub-Q [Active]; Imdur 30 mg Oral Tb24 1 tab once daily [Active]; ipratropium bromide (bulk) miscellaneous [Active]; levalbuterol HCl 0.63 mg/3 mL inhalation nebu 3 mL 3 times per day [Active]; Lyrica 50 mg Oral 1 cap 2 times per day [Active]; melatonin 3 mg Oral tab 2 tabs daily [Active]; Multaq 400 mg oral tab 1 tab 2 times per day [Active]; Nitrostat SL [Active]; omeprazole 20 mg oral TbEC 20 mg daily [Active]; Plavix 75 mg Oral tab 1 tab once daily [Active]; prednisone 5 mg oral tab 1 tab once daily [Active]; torsemide 20 mg Oral tab 1 tab twice a day [Active]; tramadol 50 mg Oral tab 1 tab every 6 hours [Active]; Zoloft Oral [Active]; Ranexa 1,000 mg oral Tb12 1 tab 2 times per day [Active]; zinc sulfate 220 mg Oral tab daily [Active]; Vitamin C Oral [Active]; - PMHx: 16:45 Anxiety; Atrial Fib; Cellulitis; CHF; COPD; Depression; Diabetes - IDDM; Pacemaker; rb1 - Immunization history:: Adult Immunizations up to date. - Social history:: Smoking status: Patient/guardian denies using tobacco. - Ebola Screening: : Patient negative for fever greater than or equal to 101.5 degrees Fahrenheit, and additional compatible Ebola Virus Disease symptoms. - Family history:: not pertinent. ROS: 17:59 Constitutional: Negative for fever, chills, and weight loss, Eyes: Negative for injury, coleen pain, redness, and discharge, ENT: Negative for injury, pain, and discharge, Neck: Negative for injury, pain, and swelling, Cardiovascular: Negative for chest pain, palpitations, and edema, Abdomen/GI: Negative for abdominal pain, nausea, vomiting, diarrhea, and constipation, Back: Negative for injury and pain, : Negative for injury, bleeding, discharge, and swelling, Skin: Negative for injury, rash, and discoloration, Psych: Negative for depression, anxiety, suicide ideation, homicidal ideation, and hallucinations, Allergy/Immunology: Negative for hives, rash, and allergies, Endocrine: Negative for neck swelling, polydipsia, polyuria, polyphagia, and marked weight changes. 17:59 Respiratory: Positive for cough, shortness of breath, at rest. 17:59 MS/extremity: Positive for decreased range of motion, erythema, pain, swelling, tenderness, of the right foot. Exam: 17:59 Constitutional: This is a well developed, well nourished patient who is awake, alert, coleen and in no acute distress. Head/Face: Normocephalic, atraumatic. Eyes: Pupils equal round and reactive to light, extra-ocular motions intact. Lids and lashes normal. Conjunctiva and sclera are non-icteric and not injected. Cornea within normal limits. Periorbital areas with no swelling, redness, or edema. ENT: Nares patent. No nasal discharge, no septal abnormalities noted. Tympanic membranes are normal and external auditory canals are clear. Oropharynx with no redness, swelling, or masses, exudates, or evidence of obstruction, uvula midline. Mucous membranes moist. Neck: Trachea midline, no thyromegaly or masses palpated, and no cervical lymphadenopathy. Supple, full range of motion without nuchal rigidity, or vertebral point tenderness. No Meningismus. Chest/axilla: Normal chest wall appearance and motion. Nontender with no deformity. No lesions are appreciated. Cardiovascular: Regular rate and rhythm with a normal S1 and S2. No gallops, murmurs, or rubs. Normal PMI, no JVD. No pulse deficits. Abdomen/GI: Soft, non-tender, with normal bowel sounds. No distension or tympany. No guarding or rebound. No evidence of tenderness throughout. Back: No spinal tenderness. No costovertebral tenderness. Full range of motion. Female : Normal external genitalia. Psych: Awake, alert, with orientation to person, place and time. Behavior, mood, and affect are within normal limits. 17:59 Respiratory: the patient does not display signs of respiratory distress, Respirations: no acute changes, labored breathing, is not present, Breath sounds: rhonchi, that are mild, Respiratory rate: 19 18:02 Musculoskeletal/extremity: DVT Exam: negative Homans' sign noted on exam, no coleen appreciated bluish discoloration, pain, swelling, tenderness, erythema, increased warmth, that is mild. 19:39 Abdomen/GI: Rectal exam: Stool: guaiac positive, no melena. [facility] Vital Signs: 16:45 BP 128 / 54; Pulse 85; Resp 19; Temp 98.1(O); Pulse Ox 100% on R/A; Weight 77.11 kg rb1 (R); Height 5 ft. 3 in. (160.02 cm) (R); Pain 8/10; 19:00 BP 144 / 75; Pulse 74; Resp 22; Pulse Ox 100% on Nebulizer Mask; jb4 20:00 BP 125 / 53; Pulse 69; Resp 20; Pulse Ox 100% on 2 lpm NC; jb4 20:59 BP 111 / 57; Pulse 68; Resp 17; Pulse Ox 99% on R/A; oe 21:01 BP 132 / 49; Pulse 68; Resp 15; Temp 97.6(O); Pulse Ox 100% on R/A; tl2 21:20 BP 126 / 50; Pulse 65; Resp 15; Pulse Ox 100% on R/A; tl2 21:20 tl2 22:18 BP 120 / 50; Pulse 70; Resp 14; Temp 98.1(O); Pulse Ox 100% on 2 lpm NC; jb4 16:45 Body Mass Index 30.11 (77.11 kg, 160.02 cm) rb1 21:20 See transfusion flow sheet for further vitals. tl2 MDM: 17:00 Patient medically screened. coleen 17:01 Patient medically screened. coleen 18:02 Data reviewed: vital signs, nurses notes, lab test result(s), EKG, radiologic studies, [facility] CT scan, plain films. 04/28 17:58 Order name: Basic Metabolic Panel [facility] 04/28 17:58 Order name: CBC with Diff [facility] 04/28 17:58 Order name: LFT's [facility] 04/28 17:58 Order name: Magnesium [facility] 04/28 17:58 Order name: NT PRO-BNP [facility] 04/28 17:58 Order name: PT-INR [facility] 04/28 17:58 Order name: Troponin (emerg Dept Use Only); Complete Time: 19:37 [facility] 04/28 17:58 Order name: Blood Culture Adult (2) [facility] 04/28 17:58 Order name: Lipase; Complete Time: 19:37 [facility] 04/28 17:58 Order name: Urine Culture [facility] 04/28 17:58 Order name: Lactate; Complete Time: 19:15 [facility] 04/28 17:58 Order name: Procalcitonin [facility] 04/28 17:58 Order name: Sed Rate; Complete Time: 19:15 [facility] 04/28 17:58 Order name: Basic Metabolic Panel; Complete Time: 19:37 EDMS 04/28 17:58 Order name: XRAY Chest (1 view) [facility] 04/28 17:58 Order name: Foot Right 2 View XRAY [facility] 04/28 17:58 Order name: CBC with Automated Diff; Complete Time: 19:15 EDMT 04/28 17:58 Order name: Liver (Hepatic) Function; Complete Time: 19:37 EDMT 04/28 17:58 Order name: Magnesium; Complete Time: 19:37 [facility] 04/28 17:58 Order name: NT PRO-BNP; Complete Time: 19:37 [facility] 04/28 17:58 Order name: Protime (+INR); Complete Time: 19:15 [facility] 04/28 19:17 Order name: Type And Screen [facility] 04/28 17:58 Order name: Cardiac monitoring; Complete Time: 18:58 [facility] 04/28 17:58 Order name: EKG - Nurse/Tech; Complete Time: 18:57 [facility] 04/28 17:58 Order name: IV Saline Lock; Complete Time: 18:38 [facility] 04/28 17:58 Order name: Labs collected and sent; Complete Time: 18:38 [facility] 04/28 17:58 Order name: O2 Per Protocol; Complete Time: 18:58 [facility] 04/28 17:58 Order name: O2 Sat Monitoring; Complete Time: 18:58 [facility] 04/28 17:58 Order name: Urine Dipstick-Ancillary (obtain specimen); Complete Time: 22:35 [facility] 04/28 19:18 Order name: Transfuse; Complete Time: 21:59 [facility] 04/28 19:37 Order name: Wound dressing; Complete Time: 21:12 [facility] Administered Medications: 18:52 Drug: Xopenex 1.25 mg Route: Inhalation; rb1 18:52 Drug: AtroVENT Aerosol 0.5 mg Route: Inhalation; rb1 18:59 Drug: Zosyn 3.375 grams Route: IVPB; Infused Over: 60 mins; Site: right wrist; rb1 19:59 Follow up: Response: No adverse reaction; IV Status: Completed infusion jb4 20:15 Drug: ProTONIX 40 mg Route: IVP; Site: right wrist; jb4 22:43 Follow up: Response: No adverse reaction jb4 20:17 Drug: Lasix 40 mg Route: IVP; Site: right wrist; jb4 22:42 Follow up: Response: No adverse reaction jb4 21:00 Drug: Tylenol 650 mg Route: PO; tl2 22:42 Follow up: Response: No adverse reaction jb4 21:00 Drug: Benadryl 12.5 mg Route: IVP; Site: right wrist; tl2 22:35 Follow up: Response: No adverse reaction jb4 Point of Care Testing: Blood Glucose: 17:32 Blood Glucose: 236 mg/dL; dh3 Ranges: Critical Glucose Levels:Adult <50 mg/dl or >400 mg/dl <40 mg/dl or >180 mg/dl Disposition: 04/28/18 19:[address] [facility]. Diagnosis are Cellulitis and acute lymphangitis of other parts of limb, Anemia, unspecified, Unspecified kidney failure, Gastrointestinal hemorrhage, unspecified, Type 2 diabetes mellitus, Unspecified combined systolic (congestive) and diastolic (congestive) heart failure. - Reason for transfer: Higher level of care. - Accepting physician is to [facility]. - Condition is Fair. - Problem is new. - Symptoms have improved. Signatures: Dispatcher [employer] EDMS Kirk Ascencio MD MD cha Barber, Rebecca, RN RN rb1 Shara Yusuf RN RN tl2 Daniel Durán RN RN jb4 Corrections: (The following items were deleted from the chart) 19:27 19:24 04/28/2018 19:[address] [facility]. Diagnosis is coleen Cellulitis and acute lymphangitis of other parts of limb; Anemia, unspecified; Unspecified kidney failure. Reason for transfer: Higher level of care. Accepting physician is to [facility]. Condition is Fair. Problem is new. Symptoms have improved. [facility] 19:27 19:27 04/28/2018 19:[address] [facility]. Diagnosis is coleen Cellulitis and acute lymphangitis of other parts of limb; Anemia, unspecified; Unspecified kidney failure; Gastrointestinal hemorrhage, unspecified. Reason for transfer: Higher level of care. Accepting physician is to [facility]. Condition is Fair. Problem is new. Symptoms have improved. [facility] 19:41 19:27 04/28/2018 19:[address] [facility]. Diagnosis is coleen Cellulitis and acute lymphangitis of other parts of limb; Anemia, unspecified; Unspecified kidney failure; Gastrointestinal hemorrhage, unspecified; Type 2 diabetes mellitus. Reason for transfer: Higher level of care. Accepting physician is to [facility]. Condition is Fair. Problem is new. Symptoms have improved. [facility] 22:44 19:41 04/28/2018 19:[address] [facility]. Diagnosis is jb4 Cellulitis and acute lymphangitis of other parts of limb; Anemia, unspecified; Unspecified kidney failure; Gastrointestinal hemorrhage, unspecified; Type 2 diabetes mellitus; Unspecified combined systolic (congestive) and diastolic (congestive) heart failure. Reason for transfer: Higher level of care. Accepting physician is to [facility]. Condition is Fair. Problem is new. Symptoms have improved. coleen
[2018-04-28] MEDS ORDERED: DIPHENHYDRAMINE 50 MG/ML VIAL ONE (19:37)
[2018-04-28] MEDS ORDERED: ACETAMINOPHEN 325 MG TABLET ONE (19:38)
--- NOTE | 2018-04-28 19:52 | RAD REPORT ---
EXAM DESCRIPTION: RAD - Chest Single View - 04/28/2018 7:25 pm CLINICAL HISTORY: Cough, shortness of breath COMPARISON: April 25 TECHNIQUE: AP portable chest image was obtained 1838 hour . FINDINGS: No focal lung parenchymal process. Patient has baseline chronic interstitial lung disease accentuated by shallow inspiration. Heart size and vasculature are normal range and stable. Left subc lavian pacemaker is in place. No measurable pleural effusion and no pneumothorax. No acute bony abnor mality seen. No acute aortic findings suspected. IMPRESSION: Chronic interstitial lung disease accentuated by shallow inspiration. No substantial coleen nge from comparison.
--- NOTE | 2018-04-28 19:55 | RAD REPORT ---
EXAM DESCRIPTION: RAD - Foot Right 2 View - 04/28/2018 7:25 pm CLINICAL HISTORY: Foot pain COMPARISON: MRI June 2017 FINDINGS: Soft tissues adjacent to the posterior plantar and posterior margins of the calcaneus are very thin. There is little soft tissue covering the bone. No bone destructive changes evident on plai n film. Plantar and Achilles spurs are present. No fracture or acute bone process identifiable. Degen erative changes involve the third metatarsal head. Spurring changes are present at the base of the se cond proximal phalanx. IMPRESSION: No acute or destructive bone process identifiable. Degenerative changes are present as d etailed. Large soft tissue wound along the posterior calcaneus with little soft tissue covering the bone.
[2018-04-28] MEDS ORDERED: PANTOPRAZOLE 40 MG INJ ONE (20:16)
[2018-04-28] MEDS ORDERED: FUROSEMIDE 40 MG/4 ML VIAL ONE (20:16)
[2018-04-28] MEDS ORDERED: NA CHLORIDE 0.9% 1,000 ML ONE (21:15)
[2018-04-29 00:32] VITALS: TEMP 97.6; O2SAT 100
[2018-04-29 00:34] VITALS: BP 126/50
== END 2018-04-28 22:44 | disposition short-term general hospital (02) ==
LOC: ER 16:41
PROC: 30233N1 Transfusion of Nonautologous Red Blood Cells into Peripheral Vein, Percutaneous Approach (ICD-10-PCS; principal; 2018-04-28)
DX: L03.115 Cellulitis of right lower limb (principal); L03.125 Acute lymphangitis of right lower limb; D64.9 Anemia, unspecified; K92.2 Gastrointestinal hemorrhage, unspecified; N19 Unspecified kidney failure; I50.40 Unspecified combined systolic (congestive) and diastolic (congestive) heart failure; E11.9 Type 2 diabetes mellitus without complications; I48.91 Unspecified atrial fibrillation; F41.9 Anxiety disorder, unspecified; F32.9 Major depressive disorder, single episode, unspecified; Z79.01 Long term (current) use of anticoagulants; Z79.4 Long term (current) use of insulin; Z88.1 Allergy status to other antibiotic agents; Z88.5 Allergy status to narcotic agent; Z88.8 Allergy status to other drugs, medicaments and biological substances; Z95.0 Presence of cardiac pacemaker
CPT/HCPCS: 96365; 87040 ×2; 87088; 85025; 87086; 80048; 36415; 86900; 83735; 86850; 87205; 85610; 86901; 82962; 80076; 83605; 85652; 87077 ×2; 87186 ×2; 84484; 83690; 84145; 83880; 71045; 73620; 96375; 99285; 36430; J1940; C9113; J2543; P9016; J7030

== ENCOUNTER 2018-05-22 08:51 | Emergency (ER) | payer OTHER ==
[2018-05-22] MEDS ORDERED: PANTOPRAZOLE 40 MG INJ ONE (09:22)
[2018-05-22] MEDS ORDERED: ACETAMINOPHEN 650MG/RECT SUPP PR ONE (09:22)
[2018-05-22] MEDS ORDERED: NA CHLORIDE 0.9% 1,000 ML ONE (09:22)
[2018-05-22 09:39] LABS: Absolute Lymphocytes (CBC) 0.9 K/uL (0.7-4.9); Absolute Neutrophil 9.8 K/uL (1.8-8.0); Basophils % 0.6 % (0-1.3); Eosinophils % 0.1 % (0-4.4); Hematocrit 25.8 % (36.0-45.0); Lymphocytes % 7.5 % (15.3-44.8); MPV 8.1 fL (7.6-11.3); Monocytes % 8.3 % (3.3-12.3); RBC Red Blood Cell Count 3.03 M/uL (3.86-4.86)
[2018-05-22 09:44] LABS: Protime INR 1.43
[2018-05-22 10:07] LABS: ALT/SGPT 43 U/L (12-78); AST/SGOT 60 U/L (15-37); Albumin 2.3 g/dL (3.4-5.0); Alkaline Phosphatase 97 U/L (45-117); BUN Blood Urea Nitrogen 34 mg/dL (7-18); Bicarbonate 34 mmol/L (21-32); Bilirubin Direct 0.2 mg/dL (0-0.2); Bilirubin Total 0.5 mg/dL (0.2-1.0); Glucose Level 160 mg/dL (74-106); Magnesium 2.1 mg/dL (1.8-2.4); NT PRO-BNP 8051 pg/mL (<450); Potassium 4.2 mmol/L (3.5-5.1); Protein, Total 6.8 g/dL (6.4-8.2); Sodium Level 135 mmol/L (136-145); Troponin (Emerg Dept Use Only) < 0.02 ng/mL (0.0-0.045)
[2018-05-22] MEDS ORDERED: CEFEPIME/SWI 1gm 10 ML IV ONE (10:15)
[2018-05-22] MEDS ORDERED: VANCOMYCIN/NS 1 gm 1 GM/250 ML BAG IV ONE (10:15)
--- NOTE | 2018-05-22 11:14 | ER ---
Nurse's Notes [facility] Name: Rani Blanco Age: 78 yrs Sex: Female : 1940 Arrival Date: 05/22/2018 Time: 08:50 Bed 7 Private MD: Diagnosis: Hypotension-resolved;Fever, unspecified;Dyspnea;Chronic obstructive pulmonary disease with (acute) exacerbation;Pulmonary fibrosis, unspecified;Anemia, unspecified;Type 1 diabetes mellitus;Pressure ulcer-right calcaneal, with failed graft,necrosis;Unspecified kidney failure;Unspecified combined systolic (congestive) and diastolic (congestive) heart failure;Pneumonia due to other specified bacteria;Constipation-rectal impaction Presentation: 05/22 08:42 Presenting complaint: EMS states: called out for hypotension and hypoxia. BP 66/43, 88% sv RA, A\T\A tx given before EMS arrival. On EMS arrival BP 116/68 98% 4L per NC, BS-217, Temp-97. Pt had a debridement done on her right heel at [facility] yesterday and was discharged at 10pm. Transition of care: patient was not received from another setting of care. Onset of symptoms was May 22, 2018. Risk Assessment: Do you want to hurt yourself or someone else? Patient reports no desire to harm self or others. Initial Sepsis Screen: Does the patient meet any 2 criteria? No. Patient's initial sepsis screen is negative. Does the patient have a suspected source of infection? No. Patient's initial sepsis screen is negative. Care prior to arrival: IV initiated. 20 GA, in the left antecubital area, Glucose check: 217 Oxygen administered. via nasal cannula. 08:42 Method Of Arrival: EMS: Search to Phone EMS sv 08:42 Acuity: YOSSI 2 sv Triage Assessment: 08:45 General: Appears in no apparent distress. uncomfortable, Behavior is cooperative, sv restless. Pain: Denies pain. Neuro: Level of Consciousness is awake, alert, obeys commands, Oriented to person, place, time, situation, Moves all extremities. Cardiovascular: Patient's skin is warm and dry. Cardiovascular: Denies chest pain. Respiratory: Airway is patent Respiratory effort is even, unlabored, Respiratory pattern is regular, symmetrical, Onset: The symptoms/episode began/occurred this morning, the patient has mild shortness of breath. Respiratory: Denies shortness of breath. Derm: Skin is pale, Wound noted heel of right foot Wound is pt had a debridement done to the heel of her right foot, that was done at [facility]. Dressing is on it at this time. Removed by Dr Ascencio, pt has multiple ck to the heel. Decubitus located on sacrum approximately 2.6 cm to 7.5 cm is stage III is draining small amount. Historical: - Allergies: 09:03 Amiodarone; sv 09:03 Fentanyl; sv 09:03 Lorazepam; sv 09:03 METOCLOPRAMIDE; sv 09:03 Morphine; sv 09:03 Promethazine; sv 09:03 Levaquin; sv 09:03 Vghcpzu-Pfk-Qri Reductase Inhibitors; sv 09:03 Toradol; sv - Home Meds: 09:03 acetylcysteine oral oral [Active]; Cardizem 240 mg Oral tab 1 tab daily [Active]; sv cholecalciferol (vitamin D3) 2,000 unit Oral cap daily [Active]; cyanocobalamin (vitamin B-12) 500 mcg oral tab daily [Active]; docusate sodium 100 mg Oral cap 1 cap 2 times per day [Active]; Eliquis 2.5 mg oral tab 1 tab 2 times per day [Active]; Flomax 0.4 mg Oral cp24 1 cap once daily [Active]; Humalog Sub-Q [Active]; Imdur 30 mg Oral Tb24 1 tab once daily [Active]; ipratropium bromide (bulk) miscellaneous [Active]; Lantus Sub-Q [Active]; Lyrica 50 mg Oral 1 cap 2 times per day [Active]; melatonin 3 mg Oral tab 2 tabs daily [Active]; Nitrostat SL [Active]; Plavix 75 mg Oral tab 1 tab once daily [Active]; Protonix 40 mg Oral TbEC 1 tab once daily [Active]; Ranexa 1,000 mg Oral Tb12 1 tab 2 times per day [Active]; Zoloft 100 mg oral tab 1.5 tabs once daily [Active]; torsemide 20 mg Oral tab 1 tab twice a day [Active]; tramadol 50 mg Oral tab 1 tab every 6 hours [Active]; Zofran (as hydrochloride) 4 mg Oral tab [Active]; - PMHx: 09:03 Anxiety; Atrial Fib; Cellulitis; CHF; COPD; Depression; Diabetes - IDDM; Pacemaker; sv Muscle weakness; GERD; foot ulcer; - Immunization history:: Adult Immunizations up to date. - Social history:: Smoking status: Patient/guardian denies using tobacco. - Ebola Screening: : No symptoms or risks identified at this time. Screenin:05 Abuse screen: Denies threats or abuse. Denies injuries from another. Nutritional sv screening: No deficits noted. Tuberculosis screening: No symptoms or risk factors identified. Fall Risk No fall in past 12 months (0 pts). Secondary diagnosis (15 points) impaired mobility, IV access (20 points). Ambulatory Aid- None/Bed Rest/Nurse Assist (0 pts). Gait- Normal/Bed Rest/Wheelchair (0 pts) Mental Status- Oriented to own ability (0 pts). Total Mancuso Fall Scale indicates Low Risk Score (25-44 pts). Fall prevention measures have been instituted. Side Rails Up X 2 Placed close to Nursing Station Frequent Obs/Assesments occuring Family Present and informed to notify staff if they need to leave bedside As available Patient and Family Educated on Fall Prevention Program and strategies. Assessment: 09:30 Reassessment: Pt cleaned of bowel incontinence. sv 10:30 Reassessment: Patient appears in no apparent distress at this time. No changes from sv previously documented assessment. Patient and/or family updated on plan of care and expected duration. Pain level reassessed. 11:15 Reassessment: Patient appears in no apparent distress at this time. No changes from sv previously documented assessment. Patient and/or family updated on plan of care and expected duration. Pain level reassessed. 11:49 Reassessment: Patient appears in no apparent distress at this time. No changes from sv previously documented assessment. Patient and/or family updated on plan of care and expected duration. Pain level reassessed. 13:14 Reassessment: Patient appears in no apparent distress at this time. No changes from sv previously documented assessment. Patient and/or family updated on plan of care and expected duration. Pain level reassessed. Family remains at the bedside. 13:14 Reassessment: Awaiting transportation to [facility]. sv 14:27 Reassessment: Patient appears in no apparent distress at this time. No changes from sv previously documented assessment. Patient and/or family updated on plan of care and expected duration. Pain level reassessed. Report given to [facility]. Vital Signs: 08:42 BP 97 / 56; Pulse 91; Resp 22; Temp 99.3(O); Pulse Ox 84% on R/A; Weight 72.57 kg; sv Height 5 ft. 3 in. (160.02 cm); 09:48 BP 136 / 80; Pulse 87; Resp 14; Pulse Ox 100% on 3.5 lpm NC; sv 10:00 BP 111 / 71; Pulse 89; Resp 22; Pulse Ox 100% on 3.5 lpm NC; sv 10:30 BP 119 / 46; Pulse 89 MON; Resp 14; Pulse Ox 100% 3.5 lpm ; sv 11:00 BP 119 / 77; Pulse 93; Resp 18; Pulse Ox 100% ; sv 11:30 BP 99 / 66; Pulse 93; Resp 19; Pulse Ox 97% ; sv 13:03 BP 97 / 41; Pulse 94; Resp 17; Pulse Ox 95% on 3.5 lpm NC; sv 13:13 Temp 99.2(A); sv 13:40 BP 143 / 82; Pulse 91; Resp 17; Pulse Ox 97% on 3.5 lpm NC; sv 08:42 Body Mass Index 28.34 (72.57 kg, 160.02 cm) sv 10:30 Sinus Rhythm with Occasional PVCs sv 08:42 Pt placed on O2 \T\ 3.5 L per NC. O2 sat up to 98%. sv ED Course: 08:42 Maintain EMS IV. Dressing intact. Site clean \T\ dry. Gauge \T\ site: 20G L AC. sv 08:45 hall monitor on. Pulse ox on. NIBP on. sv 08:50 Patient arrived in ED. sv 08:50 Ernestine Yost, RN is Primary Nurse. sv 08:50 Initial lab(s) drawn, by me, sent to lab. First set of blood cultures drawn by me. jb1 08:56 Kirk Ascencio MD is Attending Physician. [facility] 08:57 Triage completed. sv 09:04 Arm band placed on. sv 09:05 ED physician to see patient. sv 09:05 Patient has correct armband on for positive identification. Placed in gown. Bed in low sv position. Call light in reach. Side rails up X2. 09:05 Second set of blood cultures drawn by me. jb1 09:20 EKG done, by game technician. reviewed by Kirk Ascencio MD. dt2 09:21 X-ray completed. Portable x-ray completed in exam room. jr1 09:21 XRAY Chest (1 view) In Process Unspecified. EDMS 09:35 Dressings: Kerlix X 1; heel of right foot Vaseline gauze X 1; heel of right foot 4X4s X sv 1; heel of right foot. 09:50 Inserted saline lock: 20 gauge in right antecubital area, using aseptic technique. jb1 Blood collected. 10:[address] Scan. sv 11:00 Urine collected: Cullen catheter specimen, cloudy, patsy colored. sv 11:25 Radiology exam delayed due to patient receiving breathing treatment at this time. RN TO jg6 NOTIFY CT WHEN PT IS READY. 11:[address] via stretcher. sv 11:57 CT completed. Patient tolerated procedure well. Patient moved back from CT. sw 11:59 Chest Abdomen Pelvis Wo Con CT: no oral no iv In Process Unspecified. EDMS 13:02 No provider procedures requiring assistance completed. Patient transferred, IV remains sv in place. intact. Administered Medications: 09:47 Drug: Tylenol Suppository 650 mg Route: IN; sv 11:48 Follow up: Response: No adverse reaction sv 09:47 Drug: NS 0.9% 500 ml Route: IV; Rate: bolus; Site: right antecubital; sv 10:20 Follow up: Response: No adverse reaction; IV Status: Completed infusion; IV Intake: sv 500ml 09:48 Drug: ProTONIX 40 mg Route: IVP; Site: right antecubital; sv 10:00 Follow up: Response: No adverse reaction sv 10:30 Drug: NS 0.9% 1000 ml Route: IV; Rate: 125 ml/hr; Site: right antecubital; sv 11:11 Drug: Cefepime 1 grams Route: IVPB; Rate: 200 ml/hr; Infused Over: 30 mins; Site: left sv antecubital; 11:15 Follow up: Response: No adverse reaction; IV Status: Completed infusion; IV Intake: 20mlsv 11:15 Drug: vancoMYCIN 1 grams Route: IVPB; Infused Over: 2 hrs; Site: left antecubital; sv 13:58 Follow up: Response: No adverse reaction; IV Status: Completed infusion; IV Intake: sv 250ml 11:29 Drug: Xopenex (3) 1.25 mg Route: Inhalation; sv 11:29 Drug: AtroVENT Aerosol 0.5 mg Route: Inhalation; sv 11:29 Drug: SOLU-Medrol 125 mg Route: IVP; Site: right antecubital; sv 11:47 Follow up: Response: No adverse reaction sv 13:57 Drug: Zosyn 3.375 grams Route: IVPB; Infused Over: 60 mins; Site: right antecubital; sv 14:35 Follow up: Response: No adverse reaction; IV Status: Infusion continued upon transfer sv Point of Care Testing: Blood Glucose: 13:13 Blood Glucose: 120 mg/dL; sv Ranges: Intake: 10:20 IV: 500ml; Total: 500ml. sv 11:15 IV: 20ml; Total: 520ml. sv 13:58 IV: 250ml; Total: 770ml. sv Outcome: 11:14 ER care complete, transfer ordered by MD. horne 13:02 Transferred by ground EMS to [facility], Transfer form completed. sv X-rays sent w/ patient. Note: Report given to Merced VELASCO at [facility] 13:02 Condition: stable 13:02 Instructed on the need for transfer. 14:27 Patient left the ED. sv Signatures: Dispatcher [employer] Harpreet Vieira Stephanie, RN RN sv Anderson, Corey, MD MD cha Ringgold, Jennifer jr1 Sumaya Hines Danielle dt2 Rosa Friend [id number] Corrections: (The following items were deleted from the chart) 13:14 08:45 Derm: Skin is pale, Wound noted heel of right foot Wound is pt had a debridement sv done to the heel of her right foot, that was done at [facility]. Dressing is on it at this time. Removed by Dr Ascencio, pt has multiple ck to the heel. sv
--- NOTE | 2018-05-22 11:15 | EDPHYS ---
Physician Documentation [facility] Name: Rani Blanco Age: 78 yrs Sex: Female : 1940 Arrival Date: 05/22/2018 Time: 08:50 Bed 7 Private MD: ED Physician Kirk Ascencio HPI: 05/22 09:08 This 78 yrs old Female presents to ER via EMS with complaints of Hypotension, coleen Shortness Of Breath. 09:08 The patient has shortness of breath at rest, with light activity. Onset: The coleen symptoms/episode began/occurred 2 day(s) ago. Duration: The symptoms are continuous, and are steadily getting worse. The patient's shortness of breath has no apparent modifying factors. Associated signs and symptoms: Pertinent positives: non-productive cough. Severity of symptoms: At their worst the symptoms were moderate in the emergency department the symptoms are unchanged. Historical: - Allergies: 09:03 Amiodarone; sv 09:03 Fentanyl; sv 09:03 Lorazepam; sv 09:03 METOCLOPRAMIDE; sv 09:03 Morphine; sv 09:03 Promethazine; sv 09:03 Levaquin; sv 09:03 Yunrjwh-Qwn-Dpi Reductase Inhibitors; sv 09:03 Toradol; sv - Home Meds: 09:03 acetylcysteine oral oral [Active]; Cardizem 240 mg Oral tab 1 tab daily [Active]; sv cholecalciferol (vitamin D3) 2,000 unit Oral cap daily [Active]; cyanocobalamin (vitamin B-12) 500 mcg oral tab daily [Active]; docusate sodium 100 mg Oral cap 1 cap 2 times per day [Active]; Eliquis 2.5 mg oral tab 1 tab 2 times per day [Active]; Flomax 0.4 mg Oral cp24 1 cap once daily [Active]; Humalog Sub-Q [Active]; Imdur 30 mg Oral Tb24 1 tab once daily [Active]; ipratropium bromide (bulk) miscellaneous [Active]; Lantus Sub-Q [Active]; Lyrica 50 mg Oral 1 cap 2 times per day [Active]; melatonin 3 mg Oral tab 2 tabs daily [Active]; Nitrostat SL [Active]; Plavix 75 mg Oral tab 1 tab once daily [Active]; Protonix 40 mg Oral TbEC 1 tab once daily [Active]; Ranexa 1,000 mg Oral Tb12 1 tab 2 times per day [Active]; Zoloft 100 mg oral tab 1.5 tabs once daily [Active]; torsemide 20 mg Oral tab 1 tab twice a day [Active]; tramadol 50 mg Oral tab 1 tab every 6 hours [Active]; Zofran (as hydrochloride) 4 mg Oral tab [Active]; - PMHx: 09:03 Anxiety; Atrial Fib; Cellulitis; CHF; COPD; Depression; Diabetes - IDDM; Pacemaker; sv Muscle weakness; GERD; foot ulcer; - Immunization history:: Adult Immunizations up to date. - Social history:: Smoking status: Patient/guardian denies using tobacco. - Ebola Screening: : No symptoms or risks identified at this time. ROS: 09:09 Constitutional: Negative for fever, chills, and weight loss, Eyes: Negative for injury, coleen pain, redness, and discharge, ENT: Negative for injury, pain, and discharge, Neck: Negative for injury, pain, and swelling, Cardiovascular: Negative for chest pain, palpitations, and edema, Back: Negative for injury and pain, : Negative for injury, bleeding, discharge, and swelling, Skin: Negative for injury, rash, and discoloration, Neuro: Negative for headache, weakness, numbness, tingling, and seizure, Psych: Negative for depression, anxiety, suicide ideation, homicidal ideation, and hallucinations, Allergy/Immunology: Negative for hives, rash, and allergies, Endocrine: Negative for neck swelling, polydipsia, polyuria, polyphagia, and marked weight changes, Hematologic/Lymphatic: Negative for swollen nodes, abnormal bleeding, and unusual bruising. 09:09 Respiratory: Positive for cough, with no reported sputum, shortness of breath. 09:09 Abdomen/GI: Positive for abdominal pain, nausea and vomiting, of the right upper quadrant, left upper quadrant, right lower quadrant and left lower quadrant. Exam: 09:09 Constitutional: This is a well developed, well nourished patient who is awake, alert, coleen and in no acute distress. Head/Face: Normocephalic, atraumatic. Eyes: Pupils equal round and reactive to light, extra-ocular motions intact. Lids and lashes normal. Conjunctiva and sclera are non-icteric and not injected. Cornea within normal limits. Periorbital areas with no swelling, redness, or edema. ENT: Nares patent. No nasal discharge, no septal abnormalities noted. Tympanic membranes are normal and external auditory canals are clear. Oropharynx with no redness, swelling, or masses, exudates, or evidence of obstruction, uvula midline. Mucous membranes moist. Neck: Trachea midline, no thyromegaly or masses palpated, and no cervical lymphadenopathy. Supple, full range of motion without nuchal rigidity, or vertebral point tenderness. No Meningismus. Chest/axilla: Normal chest wall appearance and motion. Nontender with no deformity. No lesions are appreciated. Cardiovascular: Regular rate and rhythm with a normal S1 and S2. No gallops, murmurs, or rubs. Normal PMI, no JVD. No pulse deficits. Back: No spinal tenderness. No costovertebral tenderness. Full range of motion. Female : Normal external genitalia. Skin: Warm, dry with normal turgor. Normal color with no rashes, no lesions, and no evidence of cellulitis. Neuro: Awake and alert, GCS 15, oriented to person, place, time, and situation. Cranial nerves II-XII grossly intact. Motor strength 5/5 in all extremities. Sensory grossly intact. Cerebellar exam normal. Normal gait. Psych: Awake, alert, with orientation to person, place and time. Behavior, mood, and affect are within normal limits. 09:09 Respiratory: mild respiratory distress is noted, Respirations: normal. 09:09 Abdomen/GI: Inspection: distension, Bowel sounds: active, Palpation: mild abdominal tenderness, in all quadrants, Liver: no appreciated palpable abnormalities, Hernia: not appreciated. Vital Signs: 08:42 BP 97 / 56; Pulse 91; Resp 22; Temp 99.3(O); Pulse Ox 84% on R/A; Weight 72.57 kg; sv Height 5 ft. 3 in. (160.02 cm); 09:48 BP 136 / 80; Pulse 87; Resp 14; Pulse Ox 100% on 3.5 lpm NC; sv 10:00 BP 111 / 71; Pulse 89; Resp 22; Pulse Ox 100% on 3.5 lpm NC; sv 10:30 BP 119 / 46; Pulse 89 MON; Resp 14; Pulse Ox 100% 3.5 lpm ; sv 11:00 BP 119 / 77; Pulse 93; Resp 18; Pulse Ox 100% ; sv 11:30 BP 99 / 66; Pulse 93; Resp 19; Pulse Ox 97% ; sv 13:03 BP 97 / 41; Pulse 94; Resp 17; Pulse Ox 95% on 3.5 lpm NC; sv 13:13 Temp 99.2(A); sv 13:40 BP 143 / 82; Pulse 91; Resp 17; Pulse Ox 97% on 3.5 lpm NC; sv 08:42 Body Mass Index 28.34 (72.57 kg, 160.02 cm) sv 10:30 Sinus Rhythm with Occasional PVCs sv 08:42 Pt placed on O2 \T\ 3.5 L per NC. O2 sat up to 98%. sv MDM: 08:56 Patient medically screened. [facility] 09:10 Data reviewed: vital signs, nurses notes, lab test result(s), EKG, radiologic studies, [facility] CT scan, plain films. 05/22 08:51 Order name: Basic Metabolic Panel; Complete Time: 10:40 sv 05/22 08:51 Order name: CBC with Diff; Complete Time: 10:40 sv 05/22 08:51 Order name: LFT's; Complete Time: 10:40 sv 05/22 08:51 Order name: Magnesium; Complete Time: 10:40 sv 05/22 08:51 Order name: NT PRO-BNP; Complete Time: 10:40 05/22 08:51 Order name: PT-INR; Complete Time: 10:40 05/22 08:51 Order name: Troponin (emerg Dept Use Only); Complete Time: 10:40 05/22 08:51 Order name: Blood Culture Adult (2) sv 05/22 09:07 Order name: Procalcitonin; Complete Time: 11:20 coleen 05/22 09:07 Order name: Lactate; Complete Time: 10:40 [facility] 05/22 09:07 Order name: Type And Screen; Complete Time: 11:10 [facility] 05/22 09:07 Order name: Lipase; Complete Time: 10:40 [facility] 05/22 11:14 Order name: Urine Dipstick--Ancillary (enter results) 05/22 11:14 Order name: Urine Culture 05/22 08:51 Order name: XRAY Chest (1 view); Complete Time: 12:47 05/22 08:51 Order name: EKG; Complete Time: 08:53 sv 05/22 11:14 Order name: Urine Microscopic Only; Complete Time: 12:47 ss 05/22 11:21 Order name: Chest Abdomen Pelvis Wo Con CT: no oral no iv; Complete Time: 12:47 coleen 05/22 13:21 Order name: Glucose, Ancillary Testing EDMS 05/22 08:51 Order name: Cardiac monitoring; Complete Time: 09:48 sv 05/22 08:51 Order name: EKG - Nurse/Tech; Complete Time: 09:49 sv 05/22 08:51 Order name: IV Saline Lock; Complete Time: 09:49 sv 05/22 08:51 Order name: Labs collected and sent; Complete Time: 09:49 sv 05/22 08:51 Order name: O2 Per Protocol; Complete Time: 09:49 sv 05/22 08:51 Order name: O2 Sat Monitoring; Complete Time: 09:49 sv 05/22 09:07 Order name: Wound dressing; Complete Time: 09:52 [facility] 05/22 11:16 Order name: IV Saline Lock - Large Bore; Complete Time: 11:28 [facility] Administered Medications: 09:47 Drug: Tylenol Suppository 650 mg Route: AL; sv 11:48 Follow up: Response: No adverse reaction sv 09:47 Drug: NS 0.9% 500 ml Route: IV; Rate: bolus; Site: right antecubital; sv 10:20 Follow up: Response: No adverse reaction; IV Status: Completed infusion; IV Intake: sv 500ml 09:48 Drug: ProTONIX 40 mg Route: IVP; Site: right antecubital; sv 10:00 Follow up: Response: No adverse reaction sv 10:30 Drug: NS 0.9% 1000 ml Route: IV; Rate: 125 ml/hr; Site: right antecubital; sv 11:11 Drug: Cefepime 1 grams Route: IVPB; Rate: 200 ml/hr; Infused Over: 30 mins; Site: left sv antecubital; 11:15 Follow up: Response: No adverse reaction; IV Status: Completed infusion; IV Intake: 20mlsv 11:15 Drug: vancoMYCIN 1 grams Route: IVPB; Infused Over: 2 hrs; Site: left antecubital; sv 13:58 Follow up: Response: No adverse reaction; IV Status: Completed infusion; IV Intake: sv 250ml 11:29 Drug: Xopenex (3) 1.25 mg Route: Inhalation; sv 11:29 Drug: AtroVENT Aerosol 0.5 mg Route: Inhalation; sv 11:29 Drug: SOLU-Medrol 125 mg Route: IVP; Site: right antecubital; sv 11:47 Follow up: Response: No adverse reaction sv 13:57 Drug: Zosyn 3.375 grams Route: IVPB; Infused Over: 60 mins; Site: right antecubital; sv 14:35 Follow up: Response: No adverse reaction; IV Status: Infusion continued upon transfer sv Point of Care Testing: Blood Glucose: 13:13 Blood Glucose: 120 mg/dL; sv Ranges: Critical Glucose Levels:Adult <50 mg/dl or >400 mg/dl <40 mg/dl or >180 mg/dl Disposition: 05/22/18 11:[address] [facility]. Diagnosis are Hypotension - resolved, Fever, unspecified, Dyspnea, Chronic obstructive pulmonary disease with (acute) exacerbation, Pulmonary fibrosis, unspecified, Anemia, unspecified, Type 1 diabetes mellitus, Pressure ulcer - right calcaneal, with failed graft,necrosis, Unspecified kidney failure, Unspecified combined systolic (congestive) and diastolic (congestive) heart failure, Pneumonia due to other specified bacteria, Constipation - rectal impaction. - Reason for transfer: Higher level of care. - Accepting physician is to [facility]. - Condition is Fair. - Problem is new. - Symptoms have improved. Signatures: Dispatcher [employer] Ernestine Pierre RN RN sv Anderson, Corey, MD MD cha Corrections: (The following items were deleted from the chart) 11:18 11:14 05/22/2018 11:[address] [facility]. Diagnosis is [facility] Hypotension - resolved; Fever, unspecified; Dyspnea; Chronic obstructive pulmonary disease with (acute) exacerbation; Pulmonary fibrosis, unspecified; Anemia, unspecified; Type 1 diabetes mellitus. Reason for transfer: Higher level of care. Accepting physician is to [facility]. Condition is Fair. Problem is new. Symptoms have improved. [facility] 11:23 09:08 Abdomen Pelvis W Con+CT.RAD.BRZ ordered. [facility] 11:24 11:18 05/22/2018 11:[address] [facility]. Diagnosis is coleen Hypotension - resolved; Fever, unspecified; Dyspnea; Chronic obstructive pulmonary disease with (acute) exacerbation; Pulmonary fibrosis, unspecified; Anemia, unspecified; Type 1 diabetes mellitus; Pressure ulcer - right calcaneal, with failed graft,necrosis. Reason for transfer: Higher level of care. Accepting physician is to [facility]. Condition is Fair. Problem is new. Symptoms have improved. [facility] 12:54 11:24 05/22/2018 11:[address] [facility]. Diagnosis is coleen Hypotension - resolved; Fever, unspecified; Dyspnea; Chronic obstructive pulmonary disease with (acute) exacerbation; Pulmonary fibrosis, unspecified; Anemia, unspecified; Type 1 diabetes mellitus; Pressure ulcer - right calcaneal, with failed graft,necrosis; Unspecified kidney failure; Unspecified combined systolic (congestive) and diastolic (congestive) heart failure. Reason for transfer: Higher level of care. Accepting physician is to [facility]. Condition is Fair. Problem is new. Symptoms have improved. [facility] 14:27 12:54 05/22/2018 11:[address] [facility]. Diagnosis is sv Hypotension - resolved; Fever, unspecified; Dyspnea; Chronic obstructive pulmonary disease with (acute) exacerbation; Pulmonary fibrosis, unspecified; Anemia, unspecified; Type 1 diabetes mellitus; Pressure ulcer - right calcaneal, with failed graft,necrosis; Unspecified kidney failure; Unspecified combined systolic (congestive) and diastolic (congestive) heart failure; Pneumonia due to other specified bacteria; Constipation - rectal impaction. Reason for transfer: Higher level of care. Accepting physician is to [facility]. Condition is Fair. Problem is new. Symptoms have improved. coleen
[2018-05-22] MEDS ORDERED: METHYLPREDNISOLONE 125 MG INJ ONE (11:28)
[2018-05-22] MEDS ORDERED: IPRATROPIUM BROM 0.5MG/2.5ML ONE (11:28)
[2018-05-22] MEDS ORDERED: LEVALBUTEROL 1.25 MG/3 ML NEB ONE (11:28)
--- NOTE | 2018-05-22 12:11 | RAD REPORT ---
EXAM DESCRIPTION: CT - Chest Abd Pelvis Wo Con - 05/22/2018 11:58 am CLINICAL HISTORY: Chest and abdomen pain. Cough;Abdominal distention COMPARISON: No comparisons TECHNIQUE: A limited noncontrast study was submitted. All CT scans are performed using dose optimization technique as appropriate and may include automated exposure control or mA/KV adjustment according to patient size. FINDINGS: Airspace opacity is present in the right lung base likely representing in infiltrate such as pneumonia or related to aspiration. A small amount of infiltrate is also seen in the anterior righ t upper lobe.Small bilateral pleural effusions are present, greater on the right.No intrathoracic edin nopathy. The liver demonstrates no focal mass or intrahepatic biliary dilatation. The gallbladder appears abse nt. The spleen, pancreas are normal. Multiple low-density lesions in the cortices of both kidneys are incompletely assessed due to lack of IV contrast but likely cysts. 20 mm right adrenal mass is prese nt, likely an adenoma. No bowel obstruction, free air, free fluid or abscess. Large amount retained stool is seen in the rec tosigmoid colon. The right colon appears surgically absent. No pathologic lymphadenopathy in the abdo men or pelvis. Aortoiliac atherosclerosis. Hardware is in place in the lumbar spine. Cullen catheter is present in the bladder. IMPRESSION: Opacity in the right lung base likely represents infiltrate/aspiration.Small infiltrate is also present in the right upper lobe anteriorly. Significant rectosigmoid fecal impaction/retention.
[2018-05-22 12:21] LABS: Urine Bacteria 20-50 /HPF (<20); Urine Culture Reflex Order NOT NEEDED; Urine Mucus 2+ /HPF (NONE SEEN)
[2018-05-22 12:22] LABS: Urine Yeast PRESENT (NONE SEEN); Urine Yeast with Hyphae PRESENT
--- NOTE | 2018-05-22 12:26 | RAD REPORT ---
EXAM DESCRIPTION: Analy Single View05/22/2018 9:20 am CLINICAL HISTORY: Shortness of breath COMPARISON: April 28, 2018 FINDINGS: The lungs appear clear of acute infiltrate. The heart is mildly enlarged. Pacemaker leads are in place. Small right pleural effusion present
[2018-05-22] MEDS ORDERED: PIPER/TAZO/NS 3.375gm 3.375 GM/100 ML BAG ONE (13:11)
[2018-05-22 13:16] LABS: Urine Blood 2+ (NEG); Urine Glucose NEGATIVE (NEG); Urine Protein 1+ (NEG); Urine Specific Gravity 1.015 (1.005-1.030)
[2018-05-23 03:52] VITALS: TEMP 99.2
[2018-05-23 03:53] VITALS: BP 143/82; O2SAT 97
== END 2018-05-22 14:27 | disposition short-term general hospital (02) ==
LOC: ER 08:51
DX: J44.1 Chronic obstructive pulmonary disease with (acute) exacerbation (principal); J15.8 Pneumonia due to other specified bacteria; I50.40 Unspecified combined systolic (congestive) and diastolic (congestive) heart failure; N19 Unspecified kidney failure; J84.10 Pulmonary fibrosis, unspecified; D64.9 Anemia, unspecified; R50.9 Fever, unspecified; E10.9 Type 1 diabetes mellitus without complications; R06.00 Dyspnea, unspecified; K56.49 Other impaction of intestine; L89.613 Pressure ulcer of right heel, stage 3; F41.9 Anxiety disorder, unspecified; I48.91 Unspecified atrial fibrillation; F32.9 Major depressive disorder, single episode, unspecified; J44.9 Chronic obstructive pulmonary disease, unspecified; Z79.01 Long term (current) use of anticoagulants; Z79.4 Long term (current) use of insulin; Z88.1 Allergy status to other antibiotic agents; Z88.5 Allergy status to narcotic agent; Z88.8 Allergy status to other drugs, medicaments and biological substances
CPT/HCPCS: 93005; 87040 ×2; 87088; 85025; 87086; 80048; 36415; 86900; 83735; 86850; 87205 ×2; 85610; 86901; 82962; 80076; 83605; 84484; 83690; 84145; 83880; 71250; 74176; 71045; 99285; C9113; J2543; J3370; J0692; J7030; J2930; 81003; 81015; 96361; 96365; 96366; 96375